=== PATIENT | female | born 1980 | race Caucasian/White ===

== ENCOUNTER 2018-12-13 11:02 | Inpatient (IN) | payer BC ==
[2018-12-13 15:06] LABS: ADD MAN DIFF? NO; HAAIG REFLEX REFLEX FILED
[2018-12-13] MEDS: morphine 4 MG/ML VIAL IV (15:07)
[2018-12-13] MEDS: ONDANSETRON 4 MG INJ IV (15:07)
[2018-12-13] MEDS: SOD CHLORIDE 0.9% 1,000 ML IV (15:08)
[2018-12-13 15:11] LABS: BASOPHIL # 0.1 10^3/ul (0.0-0.1); BASOPHILS % 1.1 % (0.0-2.0); EOSINOPHILS % 0.6 % (0.0-7.0); HEMATOCRIT 28.7 % (37.0-47.0); HEMOGLOBIN 9.9 g/dl (12.0-16.0); LYMPHOCYTES # 0.9 10^3/ul (0.8-2.9); LYMPHOCYTES % 14.6 % (15.0-51.0); MEAN CORPUSCULAR HEMOGLOBIN 36.9 pg (29.0-33.0); MEAN CORPUSCULAR HGB CONC 34.5 g/dl (32.0-37.0); MEAN CORPUSCULAR VOLUME 107.1 fl (82.0-101.0); MEAN PLATELET VOLUME 10.1 fl (7.4-10.4); MONOCYTE # 0.8 10^3/ul (0.3-0.9); MONOCYTES % 12.5 % (0.0-11.0); NEUTROPHIL # 4.5 10^3/ul (1.6-7.5); NEUTROPHILS % 70.7 % (39.0-77.0); PLATELET COUNT 115 10^3/UL (140-415); RED BLOOD COUNT 2.68 10^6/ul (4.20-5.40); RED CELL DISTRIBUTION WIDTH 13.8 % (11.5-14.5)
[2018-12-13 15:11] LABS: WHITE BLOOD COUNT 6.4 10^3/ul (4.8-10.8)
[2018-12-13 15:28] LABS: ALANINE AMINOTRANSFERASE 64 IU/L (13-69); ALBUMIN 3.6 g/dl (3.3-4.9); ALBUMIN/GLOBULIN RATIO 0.94; ALKALINE PHOSPHATASE 325 IU/L (42-121); ANION GAP 16 (5-13); ASPARTATE AMINO TRANSFERASE 268 IU/L (15-46); BILIRUBIN,INDIRECT 1.1 mg/dl (0-1.1); BILIRUBIN,TOTAL 1.3 mg/dl (0.2-1.3); BLOOD UREA NITROGEN 9 mg/dl (7-20); CALCIUM 8.9 mg/dl (8.4-10.2); CARBON DIOXIDE 24 mmol/L (21-31); CHLORIDE 99 mmol/L (97-110); CREATININE 0.48 mg/dl (0.44-1.00); Estimated GFR > 60 mL/min (>60); GLUCOSE 67 mg/dl (70-220); LIPASE 801 U/L (23-300); POTASSIUM 3.3 mmol/L (3.5-5.1); SODIUM 139 mmol/L (135-144); TOTAL PROTEIN 7.4 g/dl (6.1-8.1)
[2018-12-13 15:59] LABS: HEPATITIS B SURFACE ANTIGEN NEGATIVE (NEGATIVE)
[2018-12-13] MEDS ORDERED: ACETAMINOPHEN 325 MG TAB PO (16:00)
[2018-12-13] MEDS ORDERED: ONDANSETRON 4 MG INJ IV ×2 (16:00→16:30)
[2018-12-13 16:09] LABS: UR CLARITY CLEAR (CLEAR); UR COLOR AMBER (YELLOW); UR GLUCOSE (Dip) NEGATIVE (NEGATIVE); UR KETONES (Dip) 2+ mg/dL (NEGATIVE); UR TOTAL PROTEIN (Dip) 1+ mg/dl (NEGATIVE); URINE PH (Dip) 6 (5.0-9.0); URINE SPECIFIC GRAVITY (Dip) 1.025 (1.003-1.030)
[2018-12-13 16:10] LABS: ADD UMIC YES; UR ASCORBIC ACID NEGATIVE (NEGATIVE); UR BILIRUBIN (Dip) 2+ mg/dL (NEGATIVE); UR BLOOD (Dip) NEGATIVE (NEGATIVE); UR LEUKOCYTE ESTERASE (Dip) NEGATIVE Leu/ul (NEGATIVE); UR NITRITE (Dip) NEGATIVE (NEGATIVE); UR UROBILINOGEN (Dip) 2+ mg/dL (NEGATIVE)
[2018-12-13 16:16] LABS: URINE RBCS 0-2 /HPF (0)
[2018-12-13 16:17] LABS: HEPATITIS B CORE ANTIBODY NEGATIVE (NEGATIVE); HEPATITIS C VIRAL ANTIBODY NEGATIVE (NEGATIVE); UR SQUAMOUS EPITHELIAL CELL FEW /HPF (FEW)
[2018-12-13] MEDS ORDERED: ENALAPRILAT 1.25 MG INJ IV (16:30)
[2018-12-13] MEDS ORDERED: NACL 0.9% 3 ML SYG IV (16:30)
[2018-12-13 16:40] LABS: HEMOGLOBIN A1C 4.3 % (0-5.9)
[2018-12-13] MEDS: DEXTROSE 50% 50 ML SYRINGE IV ×2 (17:23→17:33)
[2018-12-13] MEDS: DEXTROSE 5%-0.9% NACL 1,000 ML IV (17:33)
[2018-12-13] MEDS ORDERED: SOD CHLORIDE 0.9% 1,000 ML IV (18:00)
[2018-12-13] MEDS: morphine 2 MG INJ IV ×2 (18:19→22:41)
[2018-12-13 18:25] LABS: CHOLESTEROL 168 mg/dl (100-200)
[2018-12-13 18:33] LABS: IMMUNOGLOBULIN A 456 mg/dl (70-400); IMMUNOGLOBULIN G 1333 mg/dl (700-1600); IMMUNOGLOBULIN M 124 mg/dl (40-230)
[2018-12-14] MEDS: DEXTROSE 5%-0.9% NACL 1,000 ML IV (02:44)
[2018-12-14] MEDS: morphine 2 MG INJ IV ×4 (02:45→20:11)
[2018-12-14] MEDS: PANTOPRAZOLE 40 MG INJ IV (05:57)
[2018-12-14 06:22] LABS: ADD MAN DIFF? NO
[2018-12-14 06:26] LABS: ABNORMAL IP MESSAGE 1; BASOPHILS % 0.9 % (0.0-2.0); EOSINOPHILS # 0.1 10^3/ul (0.0-0.5); EOSINOPHILS % 1.6 % (0.0-7.0); HEMATOCRIT 24.6 % (37.0-47.0); HEMOGLOBIN 8.4 g/dl (12.0-16.0); LYMPHOCYTES # 0.6 10^3/ul (0.8-2.9); LYMPHOCYTES % 19.6 % (15.0-51.0); MEAN CORPUSCULAR HEMOGLOBIN 36.7 pg (29.0-33.0); MEAN CORPUSCULAR HGB CONC 34.1 g/dl (32.0-37.0); MEAN CORPUSCULAR VOLUME 107.4 fl (82.0-101.0); MEAN PLATELET VOLUME 10.7 fl (7.4-10.4); MONOCYTE # 0.5 10^3/ul (0.3-0.9); NEUTROPHILS % 62.6 % (39.0-77.0); PLATELET COUNT 93 10^3/UL (140-415); RED BLOOD COUNT 2.29 10^6/ul (4.20-5.40); RED CELL DISTRIBUTION WIDTH 13.4 % (11.5-14.5)
[2018-12-14 06:26] LABS: WHITE BLOOD COUNT 3.2 10^3/ul (4.8-10.8)
[2018-12-14 06:41] LABS: POSITIVE DIFF @See below
[2018-12-14 06:51] LABS: ANION GAP 7 (5-13); BLOOD UREA NITROGEN 6 mg/dl (7-20); CALCIUM 7.8 mg/dl (8.4-10.2); CARBON DIOXIDE 29 mmol/L (21-31); CHLORIDE 106 mmol/L (97-110); CREATININE 0.42 mg/dl (0.44-1.00); Estimated GFR > 60 mL/min (>60); GLUCOSE 103 mg/dl (70-220); SODIUM 142 mmol/L (135-144)
[2018-12-14 06:54] LABS: LIPASE 424 U/L (23-300)
[2018-12-14 06:54] LABS: AMYLASE 55 U/L (11-123)
[2018-12-14 06:58] LABS: HEMOGLOBIN A1C 4.4 % (0-5.9)
[2018-12-14 07:48] LABS: ALANINE AMINOTRANSFERASE 52 IU/L (13-69); ALBUMIN 2.7 g/dl (3.3-4.9); ALKALINE PHOSPHATASE 245 IU/L (42-121); ASPARTATE AMINO TRANSFERASE 186 IU/L (15-46); BILIRUBIN,INDIRECT 0.8 mg/dl (0-1.1)
[2018-12-14 11:16] LABS: HAPTOGLOBIN 58 mg/dL (43-212)
[2018-12-14] MEDS ORDERED: D5-NS + KCL 40 MEQ 1,000 ML IV (11:30)
[2018-12-14 12:07] LABS: ALPHA 1 ANTITRYPSIN 226 mg/dL (83-199); CERULOPLASMIN 31 mg/dL (18-53)
[2018-12-14] MEDS ORDERED: EPOETIN ALFA (NESRD) 3,000 UNITS/ML VIAL SC (12:30)
[2018-12-14] MEDS: POTASSIUM CHLORIDE 40 MEQ in DEXTROSE 5%-0.9% NACL 1,000 ML IV (13:40)
[2018-12-14 13:41] LABS: SMOOTH MUSCLE AB SCREEN NEGATIVE (NEGATIVE)
[2018-12-14] MEDS: EPOETIN 10000 UNITS/ML (NON ESRD/NON ONCOLOGY) SC (15:22)
[2018-12-15] MEDS: morphine 2 MG INJ IV ×5 (00:29→18:44)
[2018-12-15] MEDS: POTASSIUM CHLORIDE 40 MEQ in DEXTROSE 5%-0.9% NACL 1,000 ML IV ×3 (01:57→14:45)
[2018-12-15] MEDS: PANTOPRAZOLE 40 MG INJ IV (05:13)
[2018-12-15 06:46] LABS: IRON 47 ug/dl (35-150)
[2018-12-15 06:56] LABS: % IRON SATURATION 21 % SAT (22-52); TOTAL IRON BINDING CAPACITY 229 ug/dl (241-421)
[2018-12-15 07:11] LABS: ANION GAP 7 (5-13); BLOOD UREA NITROGEN 3 mg/dl (7-20); CALCIUM 7.7 mg/dl (8.4-10.2); CARBON DIOXIDE 27 mmol/L (21-31); CHLORIDE 110 mmol/L (97-110); CREATININE 0.44 mg/dl (0.44-1.00); Estimated GFR > 60 mL/min (>60); GLUCOSE 101 mg/dl (70-220); LIPASE 321 U/L (23-300); POTASSIUM 3.4 mmol/L (3.5-5.1); SODIUM 144 mmol/L (135-144)
[2018-12-15 10:51] LABS: ALANINE AMINOTRANSFERASE 57 IU/L (13-69); ALBUMIN 2.6 g/dl (3.3-4.9); ALKALINE PHOSPHATASE 203 IU/L (42-121); ASPARTATE AMINO TRANSFERASE 172 IU/L (15-46); BILIRUBIN,INDIRECT 0.8 mg/dl (0-1.1); BILIRUBIN,TOTAL 0.8 mg/dl (0.2-1.3); TOTAL PROTEIN 5.6 g/dl (6.1-8.1)
[2018-12-15] MEDS: POTASSIUM CHLORIDE (SR) 20 MEQ TAB PO (11:29)
[2018-12-16] MEDS: POTASSIUM CHLORIDE 40 MEQ in DEXTROSE 5%-0.9% NACL 1,000 ML IV ×2 (00:50→14:44)
[2018-12-16] MEDS: morphine 2 MG INJ IV ×6 (04:17→21:07)
[2018-12-16] MEDS: PANTOPRAZOLE 40 MG INJ IV (05:16)
[2018-12-16 05:37] LABS: ADD MAN DIFF? NO
[2018-12-16 05:48] LABS: BASOPHILS % 0.8 % (0.0-2.0); HEMATOCRIT 26.9 % (37.0-47.0); HEMOGLOBIN 8.9 g/dl (12.0-16.0); LYMPHOCYTES # 0.8 10^3/ul (0.8-2.9); MEAN CORPUSCULAR HEMOGLOBIN 36.8 pg (29.0-33.0); MEAN CORPUSCULAR HGB CONC 33.1 g/dl (32.0-37.0); MEAN CORPUSCULAR VOLUME 111.2 fl (82.0-101.0); MEAN PLATELET VOLUME 11.3 fl (7.4-10.4); MONOCYTE # 0.5 10^3/ul (0.3-0.9); MONOCYTES % 11.3 % (0.0-11.0); NEUTROPHIL # 2.6 10^3/ul (1.6-7.5); NEUTROPHILS % 65.4 % (39.0-77.0); PLATELET COUNT 120 10^3/UL (140-415); RED BLOOD COUNT 2.42 10^6/ul (4.20-5.40); RED CELL DISTRIBUTION WIDTH 13.5 % (11.5-14.5)
[2018-12-16 05:54] LABS: INR 1.29; PROTIME 16.2 Sec (11.9-14.9); PT RATIO 1.3
[2018-12-16 05:55] LABS: PARTIAL THROMBOPLASTIN TIME 35.3 Sec (23.0-35.0)
[2018-12-16 06:25] LABS: LIPASE 325 U/L (23-300)
[2018-12-16 06:33] LABS: ALANINE AMINOTRANSFERASE 44 IU/L (13-69); ALBUMIN 2.6 g/dl (3.3-4.9); ALBUMIN/GLOBULIN RATIO 0.86; ALKALINE PHOSPHATASE 198 IU/L (42-121); ANION GAP 9 (5-13); ASPARTATE AMINO TRANSFERASE 139 IU/L (15-46); BILIRUBIN,INDIRECT 0.8 mg/dl (0-1.1); BILIRUBIN,TOTAL 0.8 mg/dl (0.2-1.3); CALCIUM 7.4 mg/dl (8.4-10.2); CARBON DIOXIDE 24 mmol/L (21-31); CHLORIDE 111 mmol/L (97-110); CREATININE 0.43 mg/dl (0.44-1.00); Estimated GFR > 60 mL/min (>60); GLUCOSE 92 mg/dl (70-220); POTASSIUM 4.1 mmol/L (3.5-5.1); SODIUM 144 mmol/L (135-144); TOTAL PROTEIN 5.6 g/dl (6.1-8.1)
[2018-12-16 06:43] LABS: BLOOD UREA NITROGEN < 2 mg/dl (7-20)
[2018-12-16] MEDS: PHYTONADIONE 10 MG/ML INJ SC (08:49)
[2018-12-16] MEDS ORDERED: ALPRAZOLAM 0.25 MG TAB PO (09:00)
[2018-12-16] MEDS: LIDOCAINE 1% (MPF) 5 ML VIAL (14:54)
[2018-12-16 17:39] LABS: ADD MAN DIFF? NO
[2018-12-16 17:42] LABS: BASOPHILS % 0.8 % (0.0-2.0); EOSINOPHILS % 0.8 % (0.0-7.0); HEMATOCRIT 29.1 % (37.0-47.0); HEMOGLOBIN 9.4 g/dl (12.0-16.0); LYMPHOCYTES # 0.7 10^3/ul (0.8-2.9); LYMPHOCYTES % 15.6 % (15.0-51.0); MEAN CORPUSCULAR HGB CONC 32.3 g/dl (32.0-37.0); MEAN CORPUSCULAR VOLUME 111.5 fl (82.0-101.0); MEAN PLATELET VOLUME 10.7 fl (7.4-10.4); MONOCYTE # 0.5 10^3/ul (0.3-0.9); MONOCYTES % 10.8 % (0.0-11.0); NEUTROPHIL # 3.4 10^3/ul (1.6-7.5); NEUTROPHILS % 71.6 % (39.0-77.0); PLATELET COUNT 135 10^3/UL (140-415); RED BLOOD COUNT 2.61 10^6/ul (4.20-5.40); RED CELL DISTRIBUTION WIDTH 13.5 % (11.5-14.5)
[2018-12-16 17:42] LABS: WHITE BLOOD COUNT 4.7 10^3/ul (4.8-10.8)
[2018-12-16 18:46] LABS: ANA SCREEN POSITIVE (NEGATIVE)
[2018-12-17] MEDS: POTASSIUM CHLORIDE 40 MEQ in DEXTROSE 5%-0.9% NACL 1,000 ML IV ×4 (01:02→23:58)
[2018-12-17] MEDS: morphine 2 MG INJ IV ×6 (01:03→22:12)
[2018-12-17] MEDS: PANTOPRAZOLE 40 MG INJ IV (05:26)
[2018-12-17 05:55] LABS: ADD MAN DIFF? NO
[2018-12-17 06:01] LABS: BASOPHIL # 0.1 10^3/ul (0.0-0.1); EOSINOPHILS % 0.6 % (0.0-7.0); HEMATOCRIT 28.9 % (37.0-47.0); HEMOGLOBIN 9.5 g/dl (12.0-16.0); LYMPHOCYTES # 0.7 10^3/ul (0.8-2.9); LYMPHOCYTES % 15.3 % (15.0-51.0); MEAN CORPUSCULAR HEMOGLOBIN 36.1 pg (29.0-33.0); MEAN CORPUSCULAR HGB CONC 32.9 g/dl (32.0-37.0); MEAN CORPUSCULAR VOLUME 109.9 fl (82.0-101.0); MEAN PLATELET VOLUME 11.8 fl (7.4-10.4); MONOCYTE # 0.5 10^3/ul (0.3-0.9); MONOCYTES % 11.1 % (0.0-11.0); NEUTROPHIL # 3.4 10^3/ul (1.6-7.5); NEUTROPHILS % 71.6 % (39.0-77.0); PLATELET COUNT 117 10^3/UL (140-415); RED BLOOD COUNT 2.63 10^6/ul (4.20-5.40); RED CELL DISTRIBUTION WIDTH 13.6 % (11.5-14.5)
[2018-12-17 06:01] LABS: WHITE BLOOD COUNT 4.8 10^3/ul (4.8-10.8)
[2018-12-17 06:04] LABS: POSITIVE DIFF @See below
[2018-12-17 06:17] LABS: ALANINE AMINOTRANSFERASE 45 IU/L (13-69); ALBUMIN 2.6 g/dl (3.3-4.9); ALBUMIN/GLOBULIN RATIO 0.78; ALKALINE PHOSPHATASE 210 IU/L (42-121); ANION GAP 8 (5-13); ASPARTATE AMINO TRANSFERASE 119 IU/L (15-46); BILIRUBIN,INDIRECT 0.7 mg/dl (0-1.1); BILIRUBIN,TOTAL 0.7 mg/dl (0.2-1.3); CALCIUM 7.2 mg/dl (8.4-10.2); CARBON DIOXIDE 22 mmol/L (21-31); CHLORIDE 111 mmol/L (97-110); CREATININE 0.36 mg/dl (0.44-1.00); Estimated GFR > 60 mL/min (>60); GLUCOSE 97 mg/dl (70-220); LIPASE 307 U/L (23-300); POTASSIUM 3.8 mmol/L (3.5-5.1); SODIUM 141 mmol/L (135-144); TOTAL PROTEIN 5.9 g/dl (6.1-8.1)
[2018-12-17 06:29] LABS: BLOOD UREA NITROGEN < 2 mg/dl (7-20)
[2018-12-17 06:31] LABS: PROTIME 16.3 Sec (11.9-14.9); PT RATIO 1.3
[2018-12-17 06:32] LABS: PARTIAL THROMBOPLASTIN TIME 35.8 Sec (23.0-35.0)
[2018-12-17] MEDS ORDERED: morphine LIQ (10 MG/5 ML) CUP PO (08:30)
[2018-12-17 08:38] LABS: AADO2 Arterial 41.2 mmHg (7.0-24.0); Allen Test ACCEPTAB; Arterial Base Excess -1.5 mmol/L (-3.0-3); Arterial Blood Gas Oxygen Sat 94.1 mmHG (95.0-98.0); Arterial COHb 0.1 % (0.0-3.0); Arterial Fraction of Oxyhgb 93.9 % (93.0-99.0); Arterial HCO3 21.8 mmol/L (22.0-26.0); Arterial MetHb 0.1 % (0.0-1.5); Arterial pCO2 31.8 mmhg (35-45); MODE ROOM AIR; Site Right Radial
[2018-12-17] MEDS: ALBUTEROL 0.083% (NEB) 2.5 MG/3 ML AMP HHN (09:55)
[2018-12-17] MEDS: SOD CHLORIDE 0.9% 100 ML (14:22)
[2018-12-17] MEDS: IOHEXOL 300MG/ML 150 ML BTL (14:23)
[2018-12-17] MEDS: AZITHROMYCIN 500MG/NS (PMX) 250 ML IVPB (15:07)
[2018-12-17 20:11] LABS: ANA PATTERN HOMOGENEOUS
[2018-12-17] MEDS: DOXYCYCLINE 100 MG TAB PO (20:25)
[2018-12-17] MEDS: BENZONATATE 100 MG CAP PO (20:25)
[2018-12-17] MEDS: FUROSEMIDE 20 MG INJ IV (22:12)
[2018-12-18] MEDS: morphine 2 MG INJ IV ×5 (03:06→20:30)
[2018-12-18 05:36] LABS: ADD MAN DIFF? NO
[2018-12-18 05:42] LABS: WHITE BLOOD COUNT 5.1 10^3/ul (4.8-10.8)
[2018-12-18 05:42] LABS: BASOPHILS % 0.8 % (0.0-2.0); EOSINOPHILS # 0.1 10^3/ul (0.0-0.5); HEMATOCRIT 27.2 % (37.0-47.0); LYMPHOCYTES # 0.7 10^3/ul (0.8-2.9); LYMPHOCYTES % 14.4 % (15.0-51.0); MEAN CORPUSCULAR HEMOGLOBIN 36.3 pg (29.0-33.0); MEAN CORPUSCULAR HGB CONC 33.1 g/dl (32.0-37.0); MEAN CORPUSCULAR VOLUME 109.7 fl (82.0-101.0); MEAN PLATELET VOLUME 11.1 fl (7.4-10.4); MONOCYTE # 0.6 10^3/ul (0.3-0.9); MONOCYTES % 12.1 % (0.0-11.0); NEUTROPHIL # 3.6 10^3/ul (1.6-7.5); NEUTROPHILS % 71.5 % (39.0-77.0); PLATELET COUNT 138 10^3/UL (140-415); RED BLOOD COUNT 2.48 10^6/ul (4.20-5.40); RED CELL DISTRIBUTION WIDTH 13.5 % (11.5-14.5)
[2018-12-18 05:48] LABS: INR 1.37; PT RATIO 1.3
[2018-12-18 05:49] LABS: ALANINE AMINOTRANSFERASE 40 IU/L (13-69); ALBUMIN 2.5 g/dl (3.3-4.9); ALBUMIN/GLOBULIN RATIO 0.86; ALKALINE PHOSPHATASE 197 IU/L (42-121); ANION GAP 5 (5-13); ASPARTATE AMINO TRANSFERASE 104 IU/L (15-46); BILIRUBIN,INDIRECT 0.8 mg/dl (0-1.1); BILIRUBIN,TOTAL 0.8 mg/dl (0.2-1.3); CALCIUM 7.4 mg/dl (8.4-10.2); CARBON DIOXIDE 26 mmol/L (21-31); CHLORIDE 108 mmol/L (97-110); CREATININE 0.43 mg/dl (0.44-1.00); Estimated GFR > 60 mL/min (>60); GLUCOSE 90 mg/dl (70-220); PARTIAL THROMBOPLASTIN TIME 36.5 Sec (23.0-35.0); POTASSIUM 4.2 mmol/L (3.5-5.1); SODIUM 139 mmol/L (135-144); TOTAL PROTEIN 5.4 g/dl (6.1-8.1)
[2018-12-18 05:55] LABS: BLOOD UREA NITROGEN < 2 mg/dl (7-20)
[2018-12-18] MEDS: PANTOPRAZOLE 40 MG INJ IV (06:02)
[2018-12-18] MEDS: BENZONATATE 100 MG CAP PO ×4 (08:10→20:30)
[2018-12-18] MEDS: DOXYCYCLINE 100 MG TAB PO ×2 (08:10→08:12)
[2018-12-18] MEDS: LIDOCAINE 1% (MPF) 5 ML VIAL (10:28)
[2018-12-18] MEDS: FUROSEMIDE 20 MG INJ IV (11:43)
[2018-12-18 12:04] LABS: FLD MN% 90.1 %; FLD PMN% 9.9 %; FLD WBC 111 /cmm
[2018-12-18 12:45] LABS: FLD CLARITY CLEAR; FLD COLOR YELLOW; FLD RBC < 2000 /uL; FLUID LD 258 U/L
[2018-12-18 12:45] LABS: FLD TYPE PLEURAL
[2018-12-18 12:46] LABS: FLUID GLUCOSE 94 mg/dl; FLUID TOTAL PROTEIN < 2.0 g/dl; FLUID TYPE PLEURAL FLUID
[2018-12-18] MEDS: POTASSIUM CHLORIDE 40 MEQ in DEXTROSE 5%-0.9% NACL 1,000 ML IV ×2 (13:19→23:27)
[2018-12-19] MEDS: morphine 2 MG INJ IV ×6 (00:31→23:01)
[2018-12-19] MEDS: POTASSIUM CHLORIDE 40 MEQ in DEXTROSE 5%-0.9% NACL 1,000 ML IV ×3 (05:12→23:59)
[2018-12-19 05:57] LABS: ADD MAN DIFF? NO
[2018-12-19 06:00] LABS: BASOPHIL # 0.1 10^3/ul (0.0-0.1); EOSINOPHILS # 0.1 10^3/ul (0.0-0.5); EOSINOPHILS % 1.6 % (0.0-7.0); HEMATOCRIT 26.9 % (37.0-47.0); LYMPHOCYTES # 0.8 10^3/ul (0.8-2.9); LYMPHOCYTES % 15.6 % (15.0-51.0); MEAN CORPUSCULAR HEMOGLOBIN 36.9 pg (29.0-33.0); MEAN CORPUSCULAR HGB CONC 33.5 g/dl (32.0-37.0); MEAN CORPUSCULAR VOLUME 110.2 fl (82.0-101.0); MEAN PLATELET VOLUME 11.1 fl (7.4-10.4); MONOCYTE # 0.6 10^3/ul (0.3-0.9); MONOCYTES % 12.5 % (0.0-11.0); NEUTROPHIL # 3.5 10^3/ul (1.6-7.5); NEUTROPHILS % 69.1 % (39.0-77.0); PLATELET COUNT 145 10^3/UL (140-415); RED BLOOD COUNT 2.44 10^6/ul (4.20-5.40); RED CELL DISTRIBUTION WIDTH 13.3 % (11.5-14.5)
[2018-12-19 06:00] LABS: WHITE BLOOD COUNT 5.1 10^3/ul (4.8-10.8)
[2018-12-19 06:20] LABS: ALANINE AMINOTRANSFERASE 39 IU/L (13-69); ALBUMIN 2.4 g/dl (3.3-4.9); ALBUMIN/GLOBULIN RATIO 0.85; ALKALINE PHOSPHATASE 184 IU/L (42-121); ANION GAP 6 (5-13); ASPARTATE AMINO TRANSFERASE 94 IU/L (15-46); BILIRUBIN,INDIRECT 0.7 mg/dl (0-1.1); BILIRUBIN,TOTAL 0.7 mg/dl (0.2-1.3); CALCIUM 7.3 mg/dl (8.4-10.2); CARBON DIOXIDE 26 mmol/L (21-31); CHLORIDE 108 mmol/L (97-110); CREATININE 0.49 mg/dl (0.44-1.00); Estimated GFR > 60 mL/min (>60); GAMMA GLUTAMYL TRANSPEPTIDASE 960 IU/L (0-50); GLUCOSE 94 mg/dl (70-220); MAGNESIUM 1.1 mg/dl (1.7-2.5); SODIUM 140 mmol/L (135-144); TOTAL PROTEIN 5.2 g/dl (6.1-8.1)
[2018-12-19 06:22] LABS: BLOOD UREA NITROGEN < 2 mg/dl (7-20)
[2018-12-19 06:28] LABS: INR 1.39; PARTIAL THROMBOPLASTIN TIME 38.6 Sec (23.0-35.0); PROTIME 17.2 Sec (11.9-14.9); PT RATIO 1.3
[2018-12-19] MEDS: FAMOTIDINE 20 MG INJ IV (06:31)
[2018-12-19] MEDS: MAGNESIUM SULFATE 3 GM in DEXTROSE 5% 100 ML IVPB (07:55)
[2018-12-19] MEDS: BENZONATATE 100 MG CAP PO ×3 (09:00→20:46)
[2018-12-19] MEDS: IOHEXOL 300MG/ML 150 ML BTL (10:16)
[2018-12-19] MEDS: SOD CHLORIDE 0.9% 100 ML (10:16)
[2018-12-19] MEDS: LIDOCAINE 1% (MPF) 5 ML VIAL (10:16)
[2018-12-19] MEDS: FUROSEMIDE 20 MG INJ IV (10:51)
[2018-12-19] MEDS: hydrOXYzine HCL 10 MG TAB PO (23:01)
[2018-12-20] MEDS: morphine 2 MG INJ IV ×5 (04:42→22:16)
[2018-12-20] MEDS: FAMOTIDINE 20 MG INJ IV (05:14)
[2018-12-20 05:47] LABS: ADD MAN DIFF? NO
[2018-12-20 05:54] LABS: WHITE BLOOD COUNT 4.6 10^3/ul (4.8-10.8)
[2018-12-20 05:54] LABS: BASOPHIL # 0.1 10^3/ul (0.0-0.1); BASOPHILS % 1.5 % (0.0-2.0); EOSINOPHILS # 0.1 10^3/ul (0.0-0.5); EOSINOPHILS % 1.8 % (0.0-7.0); HEMATOCRIT 26.6 % (37.0-47.0); HEMOGLOBIN 8.9 g/dl (12.0-16.0); LYMPHOCYTES # 0.8 10^3/ul (0.8-2.9); LYMPHOCYTES % 17.1 % (15.0-51.0); MEAN CORPUSCULAR HEMOGLOBIN 36.5 pg (29.0-33.0); MEAN CORPUSCULAR HGB CONC 33.5 g/dl (32.0-37.0); MEAN PLATELET VOLUME 11.6 fl (7.4-10.4); MONOCYTE # 0.5 10^3/ul (0.3-0.9); MONOCYTES % 11.4 % (0.0-11.0); NEUTROPHIL # 3.1 10^3/ul (1.6-7.5); NEUTROPHILS % 67.8 % (39.0-77.0); PLATELET COUNT 132 10^3/UL (140-415); RED BLOOD COUNT 2.44 10^6/ul (4.20-5.40); RED CELL DISTRIBUTION WIDTH 13.2 % (11.5-14.5)
[2018-12-20 06:07] LABS: INR 1.42; PROTIME 17.5 Sec (11.9-14.9); PT RATIO 1.4
[2018-12-20 06:08] LABS: PARTIAL THROMBOPLASTIN TIME 40.5 Sec (23.0-35.0)
[2018-12-20 06:29] LABS: ALANINE AMINOTRANSFERASE 37 IU/L (13-69); ALBUMIN 2.3 g/dl (3.3-4.9); ALBUMIN/GLOBULIN RATIO 0.76; ALKALINE PHOSPHATASE 184 IU/L (42-121); ANION GAP 5 (5-13); ASPARTATE AMINO TRANSFERASE 104 IU/L (15-46); BILIRUBIN,INDIRECT 0.6 mg/dl (0-1.1); BILIRUBIN,TOTAL 0.6 mg/dl (0.2-1.3); CALCIUM 7.6 mg/dl (8.4-10.2); CARBON DIOXIDE 24 mmol/L (21-31); CHLORIDE 107 mmol/L (97-110); CREATININE 0.43 mg/dl (0.44-1.00); Estimated GFR > 60 mL/min (>60); GLUCOSE 88 mg/dl (70-220); MAGNESIUM 1.7 mg/dl (1.7-2.5); SODIUM 136 mmol/L (135-144); TOTAL PROTEIN 5.3 g/dl (6.1-8.1)
[2018-12-20 06:30] LABS: BLOOD UREA NITROGEN < 2 mg/dl (7-20)
[2018-12-20] MEDS: BENZONATATE 100 MG CAP PO ×3 (09:17→20:23)
[2018-12-20] MEDS: FUROSEMIDE 20 MG INJ IV (09:17)
[2018-12-20] MEDS: SPIRONOLACTONE 50 MG TAB PO (09:17)
[2018-12-20] MEDS: PHYTONADIONE 10 MG in DEXTROSE 5% 50 ML IVPB (10:50)
[2018-12-20] MEDS: MAGNESIUM SULFATE 2 GM/50 ML 50 ML IVPB (13:45)
[2018-12-21] MEDS: morphine 2 MG INJ IV ×6 (02:31→22:58)
[2018-12-21 05:17] LABS: ADD MAN DIFF? NO
[2018-12-21 05:18] LABS: BASOPHIL # 0.1 10^3/ul (0.0-0.1); EOSINOPHILS # 0.1 10^3/ul (0.0-0.5); HEMATOCRIT 28.7 % (37.0-47.0); HEMOGLOBIN 9.7 g/dl (12.0-16.0); LYMPHOCYTES # 0.9 10^3/ul (0.8-2.9); MEAN CORPUSCULAR HEMOGLOBIN 36.6 pg (29.0-33.0); MEAN CORPUSCULAR HGB CONC 33.8 g/dl (32.0-37.0); MEAN CORPUSCULAR VOLUME 108.3 fl (82.0-101.0); MONOCYTE # 0.7 10^3/ul (0.3-0.9); MONOCYTES % 11.2 % (0.0-11.0); NEUTROPHIL # 4.2 10^3/ul (1.6-7.5); NEUTROPHILS % 71.5 % (39.0-77.0); PLATELET COUNT 148 10^3/UL (140-415); RED BLOOD COUNT 2.65 10^6/ul (4.20-5.40)
[2018-12-21 05:18] LABS: WHITE BLOOD COUNT 5.9 10^3/ul (4.8-10.8)
[2018-12-21] MEDS: FAMOTIDINE 20 MG INJ IV (05:22)
[2018-12-21 05:44] LABS: INR 1.32; PROTIME 16.5 Sec (11.9-14.9); PT RATIO 1.3
[2018-12-21 05:45] LABS: PARTIAL THROMBOPLASTIN TIME 38.8 Sec (23.0-35.0)
[2018-12-21 06:01] LABS: ALANINE AMINOTRANSFERASE 36 IU/L (13-69); ALBUMIN 2.5 g/dl (3.3-4.9); ALKALINE PHOSPHATASE 208 IU/L (42-121); ANION GAP 7 (5-13); ASPARTATE AMINO TRANSFERASE 129 IU/L (15-46); BILIRUBIN,INDIRECT 0.8 mg/dl (0-1.1); BILIRUBIN,TOTAL 0.8 mg/dl (0.2-1.3); BLOOD UREA NITROGEN 2 mg/dl (7-20); CALCIUM 8.5 mg/dl (8.4-10.2); CARBON DIOXIDE 25 mmol/L (21-31); CHLORIDE 103 mmol/L (97-110); CREATININE 0.45 mg/dl (0.44-1.00); Estimated GFR > 60 mL/min (>60); GLUCOSE 72 mg/dl (70-220); LIPASE 612 U/L (23-300); MAGNESIUM 1.7 mg/dl (1.7-2.5); POTASSIUM 3.9 mmol/L (3.5-5.1); SODIUM 135 mmol/L (135-144); TOTAL PROTEIN 5.6 g/dl (6.1-8.1)
[2018-12-21] MEDS: SPIRONOLACTONE 50 MG TAB PO (08:51)
[2018-12-21] MEDS: BENZONATATE 100 MG CAP PO ×3 (08:52→20:35)
[2018-12-22] MEDS: morphine 2 MG INJ IV ×4 (04:00→15:59)
[2018-12-22] MEDS: FAMOTIDINE 20 MG INJ IV (05:14)
[2018-12-22 05:22] LABS: ADD MAN DIFF? NO
[2018-12-22 05:34] LABS: BASOPHIL # 0.1 10^3/ul (0.0-0.1); BASOPHILS % 1.1 % (0.0-2.0); EOSINOPHILS # 0.1 10^3/ul (0.0-0.5); EOSINOPHILS % 1.3 % (0.0-7.0); HEMATOCRIT 30.8 % (37.0-47.0); HEMOGLOBIN 10.1 g/dl (12.0-16.0); LYMPHOCYTES # 1.3 10^3/ul (0.8-2.9); LYMPHOCYTES % 21.6 % (15.0-51.0); MEAN CORPUSCULAR HEMOGLOBIN 35.3 pg (29.0-33.0); MEAN CORPUSCULAR HGB CONC 32.8 g/dl (32.0-37.0); MEAN CORPUSCULAR VOLUME 107.7 fl (82.0-101.0); MEAN PLATELET VOLUME 10.8 fl (7.4-10.4); MONOCYTE # 0.8 10^3/ul (0.3-0.9); MONOCYTES % 12.9 % (0.0-11.0); NEUTROPHIL # 3.8 10^3/ul (1.6-7.5); NEUTROPHILS % 62.6 % (39.0-77.0); PLATELET COUNT 153 10^3/UL (140-415); RED BLOOD COUNT 2.86 10^6/ul (4.20-5.40); RED CELL DISTRIBUTION WIDTH 12.7 % (11.5-14.5)
[2018-12-22 05:34] LABS: WHITE BLOOD COUNT 6.1 10^3/ul (4.8-10.8)
[2018-12-22] MEDS: BENZONATATE 100 MG CAP PO ×3 (08:02→19:55)
[2018-12-22] MEDS: SPIRONOLACTONE 50 MG TAB PO (08:02)
[2018-12-22] MEDS: morphine 4 MG/ML VIAL IV ×2 (18:59→22:58)
[2018-12-22] MEDS ORDERED: morphine 4 MG/ML VIAL IV (20:30)
[2018-12-23] MEDS: morphine 4 MG/ML VIAL IV ×3 (03:17→11:15)
[2018-12-23] MEDS: FAMOTIDINE 20 MG INJ IV (05:43)
[2018-12-23 06:09] LABS: ADD MAN DIFF? NO
[2018-12-23 06:12] LABS: BASOPHIL # 0.1 10^3/ul (0.0-0.1); BASOPHILS % 1.2 % (0.0-2.0); EOSINOPHILS # 0.1 10^3/ul (0.0-0.5); EOSINOPHILS % 0.9 % (0.0-7.0); HEMATOCRIT 31.6 % (37.0-47.0); HEMOGLOBIN 10.3 g/dl (12.0-16.0); LYMPHOCYTES # 1.6 10^3/ul (0.8-2.9); LYMPHOCYTES % 22.7 % (15.0-51.0); MEAN CORPUSCULAR HGB CONC 32.6 g/dl (32.0-37.0); MEAN CORPUSCULAR VOLUME 107.5 fl (82.0-101.0); MEAN PLATELET VOLUME 10.9 fl (7.4-10.4); MONOCYTE # 0.8 10^3/ul (0.3-0.9); MONOCYTES % 11.3 % (0.0-11.0); NEUTROPHIL # 4.4 10^3/ul (1.6-7.5); NEUTROPHILS % 63.6 % (39.0-77.0); PLATELET COUNT 165 10^3/UL (140-415); RED BLOOD COUNT 2.94 10^6/ul (4.20-5.40); RED CELL DISTRIBUTION WIDTH 12.9 % (11.5-14.5)
[2018-12-23 06:12] LABS: WHITE BLOOD COUNT 6.9 10^3/ul (4.8-10.8)
[2018-12-23 07:49] LABS: ALANINE AMINOTRANSFERASE 33 IU/L (13-69); ALBUMIN 2.8 g/dl (3.3-4.9); ALBUMIN/GLOBULIN RATIO 0.84; ALKALINE PHOSPHATASE 204 IU/L (42-121); AMYLASE 94 U/L (11-123); ANION GAP 8 (5-13); ASPARTATE AMINO TRANSFERASE 146 IU/L (15-46); BILIRUBIN,INDIRECT 0.8 mg/dl (0-1.1); BILIRUBIN,TOTAL 0.9 mg/dl (0.2-1.3); BLOOD UREA NITROGEN 2 mg/dl (7-20); CALCIUM 9.1 mg/dl (8.4-10.2); CARBON DIOXIDE 31 mmol/L (21-31); CHLORIDE 101 mmol/L (97-110); Estimated GFR > 60 mL/min (>60); GAMMA GLUTAMYL TRANSPEPTIDASE 847 IU/L (0-50); GLUCOSE 64 mg/dl (70-220); LIPASE 408 U/L (23-300); POTASSIUM 4.3 mmol/L (3.5-5.1); SODIUM 140 mmol/L (135-144); TOTAL PROTEIN 6.1 g/dl (6.1-8.1)
[2018-12-23] MEDS: MAGNESIUM SULFATE 2 GM/50 ML 50 ML IVPB (08:43)
[2018-12-23] MEDS: BENZONATATE 100 MG CAP PO ×3 (08:44→20:58)
[2018-12-23] MEDS: SPIRONOLACTONE 50 MG TAB PO (08:44)
[2018-12-23] MEDS: morphine LIQ (10 MG/5 ML) CUP PO ×3 (15:21→21:43)
[2018-12-24] MEDS: morphine LIQ (10 MG/5 ML) CUP PO ×7 (01:46→23:33)
[2018-12-24 05:26] LABS: ADD MAN DIFF? NO
[2018-12-24 05:37] LABS: WHITE BLOOD COUNT 5.4 10^3/ul (4.8-10.8)
[2018-12-24 05:37] LABS: BASOPHIL # 0.1 10^3/ul (0.0-0.1); BASOPHILS % 1.7 % (0.0-2.0); EOSINOPHILS # 0.1 10^3/ul (0.0-0.5); EOSINOPHILS % 1.7 % (0.0-7.0); HEMATOCRIT 29.6 % (37.0-47.0); HEMOGLOBIN 9.9 g/dl (12.0-16.0); LYMPHOCYTES # 1.1 10^3/ul (0.8-2.9); MEAN CORPUSCULAR HEMOGLOBIN 35.6 pg (29.0-33.0); MEAN CORPUSCULAR HGB CONC 33.4 g/dl (32.0-37.0); MEAN CORPUSCULAR VOLUME 106.5 fl (82.0-101.0); MEAN PLATELET VOLUME 11.3 fl (7.4-10.4); MONOCYTE # 0.7 10^3/ul (0.3-0.9); MONOCYTES % 13.1 % (0.0-11.0); NEUTROPHIL # 3.5 10^3/ul (1.6-7.5); NEUTROPHILS % 63.3 % (39.0-77.0); PLATELET COUNT 148 10^3/UL (140-415); RED BLOOD COUNT 2.78 10^6/ul (4.20-5.40); RED CELL DISTRIBUTION WIDTH 12.7 % (11.5-14.5)
[2018-12-24 05:55] LABS: INR 1.39; PROTIME 17.2 Sec (11.9-14.9); PT RATIO 1.3
[2018-12-24 05:56] LABS: PARTIAL THROMBOPLASTIN TIME 40.7 Sec (23.0-35.0)
[2018-12-24 06:00] LABS: ALANINE AMINOTRANSFERASE 36 IU/L (13-69); ALBUMIN 2.5 g/dl (3.3-4.9); ALKALINE PHOSPHATASE 184 IU/L (42-121); AMYLASE 79 U/L (11-123); ANION GAP 5 (5-13); ASPARTATE AMINO TRANSFERASE 149 IU/L (15-46); BILIRUBIN,INDIRECT 0.7 mg/dl (0-1.1); BILIRUBIN,TOTAL 0.8 mg/dl (0.2-1.3); CALCIUM 8.6 mg/dl (8.4-10.2); CARBON DIOXIDE 32 mmol/L (21-31); CHLORIDE 101 mmol/L (97-110); CREATININE 0.54 mg/dl (0.44-1.00); Estimated GFR > 60 mL/min (>60); GLUCOSE 69 mg/dl (70-220); LIPASE 382 U/L (23-300); MAGNESIUM 1.4 mg/dl (1.7-2.5); POTASSIUM 4.4 mmol/L (3.5-5.1); SODIUM 138 mmol/L (135-144); TOTAL PROTEIN 5.6 g/dl (6.1-8.1)
[2018-12-24 06:03] LABS: BLOOD UREA NITROGEN < 2 mg/dl (7-20)
[2018-12-24] MEDS: BENZONATATE 100 MG CAP PO ×3 (08:12→20:26)
[2018-12-24] MEDS: SPIRONOLACTONE 50 MG TAB PO (08:12)
[2018-12-24] MEDS: FAMOTIDINE 20 MG TAB PO (08:14)
[2018-12-24] MEDS: MAGNESIUM SULFATE 3 GM in DEXTROSE 5% 100 ML IVPB (09:28)
[2018-12-24] MEDS: PHYTONADIONE 10 MG in DEXTROSE 5% 50 ML IVPB (11:49)
[2018-12-25] MEDS: morphine LIQ (10 MG/5 ML) CUP PO ×7 (02:49→21:21)
[2018-12-25 07:24] LABS: ADD MAN DIFF? NO
[2018-12-25 07:32] LABS: BASOPHIL # 0.1 10^3/ul (0.0-0.1); BASOPHILS % 1.2 % (0.0-2.0); EOSINOPHILS # 0.1 10^3/ul (0.0-0.5); EOSINOPHILS % 1.3 % (0.0-7.0); HEMATOCRIT 30.7 % (37.0-47.0); HEMOGLOBIN 10.1 g/dl (12.0-16.0); LYMPHOCYTES # 1.2 10^3/ul (0.8-2.9); LYMPHOCYTES % 20.4 % (15.0-51.0); MEAN CORPUSCULAR HEMOGLOBIN 35.4 pg (29.0-33.0); MEAN CORPUSCULAR HGB CONC 32.9 g/dl (32.0-37.0); MEAN CORPUSCULAR VOLUME 107.7 fl (82.0-101.0); MEAN PLATELET VOLUME 11.1 fl (7.4-10.4); MONOCYTE # 0.6 10^3/ul (0.3-0.9); MONOCYTES % 9.2 % (0.0-11.0); NEUTROPHIL # 4.1 10^3/ul (1.6-7.5); NEUTROPHILS % 67.6 % (39.0-77.0); PLATELET COUNT 141 10^3/UL (140-415); RED BLOOD COUNT 2.85 10^6/ul (4.20-5.40); RED CELL DISTRIBUTION WIDTH 12.5 % (11.5-14.5)
[2018-12-25 07:48] LABS: ALANINE AMINOTRANSFERASE 29 IU/L (13-69); ALBUMIN 2.7 g/dl (3.3-4.9); ALBUMIN/GLOBULIN RATIO 0.81; ALKALINE PHOSPHATASE 198 IU/L (42-121); ANION GAP 8 (5-13); ASPARTATE AMINO TRANSFERASE 162 IU/L (15-46); BILIRUBIN,INDIRECT 0.7 mg/dl (0-1.1); BILIRUBIN,TOTAL 0.7 mg/dl (0.2-1.3); BLOOD UREA NITROGEN 2 mg/dl (7-20); CALCIUM 8.5 mg/dl (8.4-10.2); CARBON DIOXIDE 29 mmol/L (21-31); CHLORIDE 101 mmol/L (97-110); CREATININE 0.47 mg/dl (0.44-1.00); Estimated GFR > 60 mL/min (>60); GLUCOSE 69 mg/dl (70-220); MAGNESIUM 1.5 mg/dl (1.7-2.5); SODIUM 138 mmol/L (135-144)
[2018-12-25 07:53] LABS: INR 1.39; PROTIME 17.2 Sec (11.9-14.9); PT RATIO 1.3
[2018-12-25 07:54] LABS: PARTIAL THROMBOPLASTIN TIME 36.9 Sec (23.0-35.0)
[2018-12-25] MEDS: FAMOTIDINE 20 MG TAB PO (08:54)
[2018-12-25] MEDS: BENZONATATE 100 MG CAP PO ×3 (08:54→21:20)
[2018-12-25] MEDS: SPIRONOLACTONE 50 MG TAB PO (10:23)
[2018-12-25] MEDS: MAGNESIUM SULFATE 3 GM in DEXTROSE 5% 100 ML IVPB (15:54)
[2018-12-26] MEDS: morphine LIQ (10 MG/5 ML) CUP PO ×8 (00:38→23:51)
[2018-12-26 05:35] LABS: ADD MAN DIFF? NO
[2018-12-26 05:40] LABS: BASOPHIL # 0.1 10^3/ul (0.0-0.1); BASOPHILS % 1.2 % (0.0-2.0); EOSINOPHILS # 0.1 10^3/ul (0.0-0.5); EOSINOPHILS % 1.2 % (0.0-7.0); HEMOGLOBIN 10.9 g/dl (12.0-16.0); LYMPHOCYTES # 1.8 10^3/ul (0.8-2.9); LYMPHOCYTES % 19.3 % (15.0-51.0); MEAN CORPUSCULAR HEMOGLOBIN 35.2 pg (29.0-33.0); MEAN CORPUSCULAR VOLUME 106.5 fl (82.0-101.0); MEAN PLATELET VOLUME 11.3 fl (7.4-10.4); MONOCYTE # 0.9 10^3/ul (0.3-0.9); MONOCYTES % 9.6 % (0.0-11.0); NEUTROPHIL # 6.2 10^3/ul (1.6-7.5); NEUTROPHILS % 68.4 % (39.0-77.0); PLATELET COUNT 158 10^3/UL (140-415); RED CELL DISTRIBUTION WIDTH 12.3 % (11.5-14.5)
[2018-12-26 05:40] LABS: WHITE BLOOD COUNT 9.1 10^3/ul (4.8-10.8)
[2018-12-26 06:32] LABS: ALANINE AMINOTRANSFERASE 29 IU/L (13-69); ALBUMIN/GLOBULIN RATIO 0.81; ALKALINE PHOSPHATASE 231 IU/L (42-121); ANION GAP 11 (5-13); ASPARTATE AMINO TRANSFERASE 193 IU/L (15-46); BILIRUBIN,INDIRECT 0.7 mg/dl (0-1.1); BILIRUBIN,TOTAL 0.7 mg/dl (0.2-1.3); BLOOD UREA NITROGEN 2 mg/dl (7-20); CALCIUM 8.8 mg/dl (8.4-10.2); CARBON DIOXIDE 30 mmol/L (21-31); CHLORIDE 97 mmol/L (97-110); CREATININE 0.48 mg/dl (0.44-1.00); Estimated GFR > 60 mL/min (>60); GLUCOSE 72 mg/dl (70-220); LIPASE 471 U/L (23-300); MAGNESIUM 1.6 mg/dl (1.7-2.5); SODIUM 138 mmol/L (135-144); TOTAL PROTEIN 6.7 g/dl (6.1-8.1)
[2018-12-26] MEDS: BENZONATATE 100 MG CAP PO ×3 (08:38→20:50)
[2018-12-26] MEDS: SPIRONOLACTONE 50 MG TAB PO (08:38)
[2018-12-26] MEDS: FAMOTIDINE 20 MG TAB PO (08:39)
[2018-12-26] MEDS: MAGNESIUM SULFATE 3 GM in DEXTROSE 5% 100 ML IVPB (11:00)
[2018-12-27] MEDS: morphine LIQ (10 MG/5 ML) CUP PO ×7 (03:14→22:43)
[2018-12-27 06:04] LABS: ADD MAN DIFF? NO
[2018-12-27 06:39] LABS: BASOPHIL # 0.1 10^3/ul (0.0-0.1); BASOPHILS % 1.2 % (0.0-2.0); EOSINOPHILS # 0.1 10^3/ul (0.0-0.5); EOSINOPHILS % 1.3 % (0.0-7.0); HEMATOCRIT 29.1 % (37.0-47.0); HEMOGLOBIN 9.9 g/dl (12.0-16.0); LYMPHOCYTES # 1.2 10^3/ul (0.8-2.9); LYMPHOCYTES % 19.9 % (15.0-51.0); MEAN CORPUSCULAR HEMOGLOBIN 35.4 pg (29.0-33.0); MEAN CORPUSCULAR VOLUME 103.9 fl (82.0-101.0); MEAN PLATELET VOLUME 11.4 fl (7.4-10.4); MONOCYTE # 0.6 10^3/ul (0.3-0.9); MONOCYTES % 10.2 % (0.0-11.0); NEUTROPHILS % 67.2 % (39.0-77.0); PLATELET COUNT 127 10^3/UL (140-415)
[2018-12-27 06:42] LABS: INR 1.34; PROTIME 16.7 Sec (11.9-14.9); PT RATIO 1.3
[2018-12-27 06:43] LABS: PARTIAL THROMBOPLASTIN TIME 40.4 Sec (23.0-35.0)
[2018-12-27 06:56] LABS: ALANINE AMINOTRANSFERASE 32 IU/L (13-69); ALBUMIN 2.6 g/dl (3.3-4.9); ALKALINE PHOSPHATASE 201 IU/L (42-121); AMYLASE 68 U/L (11-123); ANION GAP 7 (5-13); ASPARTATE AMINO TRANSFERASE 173 IU/L (15-46); BILIRUBIN,INDIRECT 0.7 mg/dl (0-1.1); BILIRUBIN,TOTAL 0.7 mg/dl (0.2-1.3); CALCIUM 8.6 mg/dl (8.4-10.2); CARBON DIOXIDE 27 mmol/L (21-31); CHLORIDE 103 mmol/L (97-110); CREATININE 0.44 mg/dl (0.44-1.00); Estimated GFR > 60 mL/min (>60); GLUCOSE 76 mg/dl (70-220); LIPASE 514 U/L (23-300); MAGNESIUM 1.4 mg/dl (1.7-2.5); POTASSIUM 3.9 mmol/L (3.5-5.1); SODIUM 137 mmol/L (135-144); TOTAL PROTEIN 5.9 g/dl (6.1-8.1)
[2018-12-27 06:57] LABS: ALBUMIN/GLOBULIN RATIO 0.78
[2018-12-27 07:24] LABS: BLOOD UREA NITROGEN < 2 mg/dl (7-20)
[2018-12-27] MEDS: FAMOTIDINE 20 MG TAB PO (08:43)
[2018-12-27] MEDS: BENZONATATE 100 MG CAP PO ×3 (08:43→20:05)
[2018-12-27] MEDS: SPIRONOLACTONE 50 MG TAB PO (08:43)
[2018-12-27] MEDS: PHYTONADIONE 10 MG/ML INJ IM (09:23)
[2018-12-27] MEDS: MAGNESIUM SULFATE 3 GM in DEXTROSE 5% 100 ML IVPB (10:59)
[2018-12-28] MEDS: morphine LIQ (10 MG/5 ML) CUP PO ×8 (01:45→23:09)
[2018-12-28 05:38] LABS: ADD MAN DIFF? NO
[2018-12-28 05:43] LABS: WHITE BLOOD COUNT 6.5 10^3/ul (4.8-10.8)
[2018-12-28 05:43] LABS: BASOPHIL # 0.1 10^3/ul (0.0-0.1); BASOPHILS % 1.4 % (0.0-2.0); EOSINOPHILS # 0.1 10^3/ul (0.0-0.5); EOSINOPHILS % 0.9 % (0.0-7.0); HEMATOCRIT 30.1 % (37.0-47.0); HEMOGLOBIN 9.9 g/dl (12.0-16.0); LYMPHOCYTES # 1.3 10^3/ul (0.8-2.9); LYMPHOCYTES % 20.6 % (15.0-51.0); MEAN CORPUSCULAR HEMOGLOBIN 34.7 pg (29.0-33.0); MEAN CORPUSCULAR HGB CONC 32.9 g/dl (32.0-37.0); MEAN CORPUSCULAR VOLUME 105.6 fl (82.0-101.0); MEAN PLATELET VOLUME 11.1 fl (7.4-10.4); MONOCYTE # 0.6 10^3/ul (0.3-0.9); MONOCYTES % 9.4 % (0.0-11.0); NEUTROPHIL # 4.4 10^3/ul (1.6-7.5); NEUTROPHILS % 67.4 % (39.0-77.0); PLATELET COUNT 114 10^3/UL (140-415); RED BLOOD COUNT 2.85 10^6/ul (4.20-5.40); RED CELL DISTRIBUTION WIDTH 12.1 % (11.5-14.5)
[2018-12-28 06:01] LABS: INR 1.36; PROTIME 16.9 Sec (11.9-14.9); PT RATIO 1.3
[2018-12-28 06:02] LABS: PARTIAL THROMBOPLASTIN TIME 36.4 Sec (23.0-35.0)
[2018-12-28 06:03] LABS: ALANINE AMINOTRANSFERASE 35 IU/L (13-69); ALBUMIN 2.7 g/dl (3.3-4.9); ALBUMIN/GLOBULIN RATIO 0.79; ALKALINE PHOSPHATASE 196 IU/L (42-121); AMYLASE 76 U/L (11-123); ANION GAP 9 (5-13); ASPARTATE AMINO TRANSFERASE 195 IU/L (15-46); BILIRUBIN,INDIRECT 0.8 mg/dl (0-1.1); BILIRUBIN,TOTAL 0.8 mg/dl (0.2-1.3); BLOOD UREA NITROGEN 2 mg/dl (7-20); CALCIUM 8.6 mg/dl (8.4-10.2); CARBON DIOXIDE 27 mmol/L (21-31); CHLORIDE 102 mmol/L (97-110); CREATININE 0.43 mg/dl (0.44-1.00); Estimated GFR > 60 mL/min (>60); GLUCOSE 67 mg/dl (70-220); LIPASE 498 U/L (23-300); MAGNESIUM 1.6 mg/dl (1.7-2.5); POTASSIUM 4.1 mmol/L (3.5-5.1); SODIUM 138 mmol/L (135-144); TOTAL PROTEIN 6.1 g/dl (6.1-8.1)
[2018-12-28] MEDS: BENZONATATE 100 MG CAP PO ×3 (08:39→20:09)
[2018-12-28] MEDS: SPIRONOLACTONE 50 MG TAB PO (08:39)
[2018-12-28] MEDS: FAMOTIDINE 20 MG TAB PO (08:39)
[2018-12-28] MEDS: MAGNESIUM SULFATE 3 GM in DEXTROSE 5% 100 ML IVPB (11:59)
[2018-12-29] MEDS: morphine LIQ (10 MG/5 ML) CUP PO ×8 (02:10→23:34)
[2018-12-29 06:02] LABS: ADD MAN DIFF? NO
[2018-12-29 06:12] LABS: WHITE BLOOD COUNT 6.1 10^3/ul (4.8-10.8)
[2018-12-29 06:12] LABS: BASOPHIL # 0.1 10^3/ul (0.0-0.1); BASOPHILS % 1.1 % (0.0-2.0); EOSINOPHILS # 0.1 10^3/ul (0.0-0.5); EOSINOPHILS % 1.8 % (0.0-7.0); HEMOGLOBIN 10.1 g/dl (12.0-16.0); LYMPHOCYTES # 1.3 10^3/ul (0.8-2.9); LYMPHOCYTES % 21.6 % (15.0-51.0); MEAN CORPUSCULAR HEMOGLOBIN 34.9 pg (29.0-33.0); MEAN CORPUSCULAR HGB CONC 33.7 g/dl (32.0-37.0); MEAN CORPUSCULAR VOLUME 103.8 fl (82.0-101.0); MEAN PLATELET VOLUME 11.5 fl (7.4-10.4); MONOCYTE # 0.6 10^3/ul (0.3-0.9); MONOCYTES % 9.3 % (0.0-11.0); NEUTROPHILS % 65.9 % (39.0-77.0); PLATELET COUNT 133 10^3/UL (140-415); RED BLOOD COUNT 2.89 10^6/ul (4.20-5.40); RED CELL DISTRIBUTION WIDTH 11.9 % (11.5-14.5)
[2018-12-29 06:42] LABS: PROTIME 16.3 Sec (11.9-14.9); PT RATIO 1.3
[2018-12-29 06:43] LABS: PARTIAL THROMBOPLASTIN TIME 38.9 Sec (23.0-35.0)
[2018-12-29 06:59] LABS: ALANINE AMINOTRANSFERASE 33 IU/L (13-69); ALBUMIN 2.8 g/dl (3.3-4.9); ALKALINE PHOSPHATASE 201 IU/L (42-121); ANION GAP 9 (5-13); ASPARTATE AMINO TRANSFERASE 190 IU/L (15-46); BILIRUBIN,INDIRECT 0.8 mg/dl (0-1.1); BILIRUBIN,TOTAL 0.8 mg/dl (0.2-1.3); BLOOD UREA NITROGEN < 2 mg/dl (7-20); CALCIUM 8.7 mg/dl (8.4-10.2); CARBON DIOXIDE 29 mmol/L (21-31); CHLORIDE 100 mmol/L (97-110); CREATININE 0.49 mg/dl (0.44-1.00); Estimated GFR > 60 mL/min (>60); GLUCOSE 80 mg/dl (70-220); LIPASE 599 U/L (23-300); MAGNESIUM 1.4 mg/dl (1.7-2.5); POTASSIUM 4.4 mmol/L (3.5-5.1); SODIUM 138 mmol/L (135-144); TOTAL PROTEIN 6.3 g/dl (6.1-8.1)
[2018-12-29] MEDS: BENZONATATE 100 MG CAP PO ×3 (08:13→20:34)
[2018-12-29] MEDS: FAMOTIDINE 20 MG TAB PO (08:14)
[2018-12-29] MEDS: SPIRONOLACTONE 50 MG TAB PO (08:14)
[2018-12-29] MEDS: IOHEXOL 14.3 MG(I)/ML (ADULT) BTL PO (11:20)
[2018-12-29] MEDS: MAGNESIUM SULFATE 3 GM in DEXTROSE 5% 100 ML IVPB (11:20)
[2018-12-29] MEDS: IOHEXOL 300MG/ML 150 ML BTL (13:25)
[2018-12-29] MEDS: SOD CHLORIDE 0.9% 100 ML (13:25)
[2018-12-29] MEDS: PHYTONADIONE 10 MG in DEXTROSE 5% 50 ML IVPB (17:08)
[2018-12-29] MEDS: hydrOXYzine HCL 10 MG TAB PO (17:18)
[2018-12-30] MEDS: morphine LIQ (10 MG/5 ML) CUP PO ×6 (02:39→21:39)
[2018-12-30 06:12] LABS: ADD MAN DIFF? NO
[2018-12-30 06:28] LABS: BASOPHIL # 0.1 10^3/ul (0.0-0.1); BASOPHILS % 1.2 % (0.0-2.0); EOSINOPHILS # 0.1 10^3/ul (0.0-0.5); EOSINOPHILS % 1.8 % (0.0-7.0); HEMATOCRIT 29.2 % (37.0-47.0); LYMPHOCYTES % 16.8 % (15.0-51.0); MEAN CORPUSCULAR HEMOGLOBIN 35.1 pg (29.0-33.0); MEAN CORPUSCULAR HGB CONC 34.2 g/dl (32.0-37.0); MEAN CORPUSCULAR VOLUME 102.5 fl (82.0-101.0); MEAN PLATELET VOLUME 11.7 fl (7.4-10.4); MONOCYTE # 0.7 10^3/ul (0.3-0.9); NEUTROPHIL # 4.2 10^3/ul (1.6-7.5); NEUTROPHILS % 68.9 % (39.0-77.0); PLATELET COUNT 126 10^3/UL (140-415); RED BLOOD COUNT 2.85 10^6/ul (4.20-5.40)
[2018-12-30 06:28] LABS: WHITE BLOOD COUNT 6.1 10^3/ul (4.8-10.8)
[2018-12-30 06:36] LABS: INR 1.38; PROTIME 17.1 Sec (11.9-14.9); PT RATIO 1.3
[2018-12-30 06:51] LABS: ALANINE AMINOTRANSFERASE 36 IU/L (13-69); ALBUMIN 2.8 g/dl (3.3-4.9); ALKALINE PHOSPHATASE 196 IU/L (42-121); AMYLASE 72 U/L (11-123); ANION GAP 10 (5-13); ASPARTATE AMINO TRANSFERASE 169 IU/L (15-46); BILIRUBIN,INDIRECT 0.8 mg/dl (0-1.1); BILIRUBIN,TOTAL 0.8 mg/dl (0.2-1.3); CALCIUM 8.7 mg/dl (8.4-10.2); CARBON DIOXIDE 29 mmol/L (21-31); CHLORIDE 98 mmol/L (97-110); CREATININE 0.41 mg/dl (0.44-1.00); Estimated GFR > 60 mL/min (>60); GLUCOSE 81 mg/dl (70-220); LIPASE 535 U/L (23-300); MAGNESIUM 1.5 mg/dl (1.7-2.5); POTASSIUM 4.2 mmol/L (3.5-5.1); SODIUM 137 mmol/L (135-144); TOTAL PROTEIN 6.3 g/dl (6.1-8.1)
[2018-12-30 06:57] LABS: BLOOD UREA NITROGEN < 2 mg/dl (7-20)
[2018-12-30] MEDS: SPIRONOLACTONE 50 MG TAB PO (08:31)
[2018-12-30] MEDS: BENZONATATE 100 MG CAP PO ×3 (08:31→21:12)
[2018-12-30] MEDS: METOCLOPRAMIDE 10 MG INJ IV ×3 (08:31→17:29)
[2018-12-30] MEDS: FAMOTIDINE 20 MG TAB PO (08:31)
[2018-12-30] MEDS: PHYTONADIONE 10 MG in DEXTROSE 5% 50 ML IVPB (09:10)
[2018-12-30] MEDS: PHYTONADIONE 1 MG/0.5 ML SYG SC (09:17)
[2018-12-30] MEDS: MAGNESIUM SULFATE 3 GM in DEXTROSE 5% 100 ML IVPB (10:05)
[2018-12-31] MEDS: METOCLOPRAMIDE 10 MG INJ IV ×5 (05:46→23:30)
[2018-12-31 06:05] LABS: ADD MAN DIFF? NO
[2018-12-31 06:16] LABS: BASOPHIL # 0.1 10^3/ul (0.0-0.1); BASOPHILS % 1.3 % (0.0-2.0); EOSINOPHILS # 0.1 10^3/ul (0.0-0.5); EOSINOPHILS % 2.1 % (0.0-7.0); HEMATOCRIT 29.4 % (37.0-47.0); HEMOGLOBIN 9.9 g/dl (12.0-16.0); LYMPHOCYTES % 18.2 % (15.0-51.0); MEAN CORPUSCULAR HEMOGLOBIN 34.4 pg (29.0-33.0); MEAN CORPUSCULAR HGB CONC 33.7 g/dl (32.0-37.0); MEAN CORPUSCULAR VOLUME 102.1 fl (82.0-101.0); MEAN PLATELET VOLUME 11.5 fl (7.4-10.4); MONOCYTE # 0.5 10^3/ul (0.3-0.9); MONOCYTES % 9.3 % (0.0-11.0); NEUTROPHIL # 3.6 10^3/ul (1.6-7.5); NEUTROPHILS % 68.7 % (39.0-77.0); PLATELET COUNT 123 10^3/UL (140-415); RED BLOOD COUNT 2.88 10^6/ul (4.20-5.40); RED CELL DISTRIBUTION WIDTH 12.3 % (11.5-14.5)
[2018-12-31 06:16] LABS: WHITE BLOOD COUNT 5.3 10^3/ul (4.8-10.8)
[2018-12-31 06:37] LABS: INR 1.39; PROTIME 17.2 Sec (11.9-14.9); PT RATIO 1.3
[2018-12-31 06:38] LABS: PARTIAL THROMBOPLASTIN TIME 39.7 Sec (23.0-35.0)
[2018-12-31 07:47] LABS: ALANINE AMINOTRANSFERASE 33 IU/L (13-69); ALBUMIN 2.6 g/dl (3.3-4.9); ALBUMIN/GLOBULIN RATIO 0.76; ALKALINE PHOSPHATASE 187 IU/L (42-121); ANION GAP 10 (5-13); ASPARTATE AMINO TRANSFERASE 156 IU/L (15-46); BILIRUBIN,INDIRECT 0.7 mg/dl (0-1.1); BILIRUBIN,TOTAL 0.7 mg/dl (0.2-1.3); BLOOD UREA NITROGEN 2 mg/dl (7-20); CALCIUM 8.6 mg/dl (8.4-10.2); CARBON DIOXIDE 28 mmol/L (21-31); CHLORIDE 101 mmol/L (97-110); CREATININE 0.52 mg/dl (0.44-1.00); Estimated GFR > 60 mL/min (>60); GLUCOSE 81 mg/dl (70-220); LIPASE 734 U/L (23-300); MAGNESIUM 1.4 mg/dl (1.7-2.5); POTASSIUM 4.2 mmol/L (3.5-5.1); SODIUM 139 mmol/L (135-144)
[2018-12-31] MEDS: FAMOTIDINE 20 MG TAB PO (08:28)
[2018-12-31] MEDS: SPIRONOLACTONE 50 MG TAB PO (08:28)
[2018-12-31] MEDS: BENZONATATE 100 MG CAP PO ×3 (08:28→20:11)
[2018-12-31] MEDS: morphine LIQ (10 MG/5 ML) CUP PO ×3 (08:32→11:54)
[2018-12-31] MEDS: PHYTONADIONE 10 MG in DEXTROSE 5% 50 ML IVPB (09:54)
[2018-12-31] MEDS: MAGNESIUM SULFATE 4 GM/100 ML 100 ML IVPB (11:47)
[2018-12-31] MEDS: morphine 4 MG/ML VIAL IV (18:47)
[2019-01-01] MEDS: METOCLOPRAMIDE 10 MG INJ IV ×3 (05:34→17:37)
[2019-01-01 05:56] LABS: ADD MAN DIFF? NO
[2019-01-01 06:05] LABS: WHITE BLOOD COUNT 5.7 10^3/ul (4.8-10.8)
[2019-01-01 06:05] LABS: BASOPHIL # 0.1 10^3/ul (0.0-0.1); BASOPHILS % 1.1 % (0.0-2.0); EOSINOPHILS # 0.1 10^3/ul (0.0-0.5); EOSINOPHILS % 1.9 % (0.0-7.0); HEMATOCRIT 29.2 % (37.0-47.0); HEMOGLOBIN 9.6 g/dl (12.0-16.0); LYMPHOCYTES # 1.1 10^3/ul (0.8-2.9); LYMPHOCYTES % 19.1 % (15.0-51.0); MEAN CORPUSCULAR HEMOGLOBIN 34.2 pg (29.0-33.0); MEAN CORPUSCULAR HGB CONC 32.9 g/dl (32.0-37.0); MEAN CORPUSCULAR VOLUME 103.9 fl (82.0-101.0); MEAN PLATELET VOLUME 11.5 fl (7.4-10.4); MONOCYTE # 0.5 10^3/ul (0.3-0.9); MONOCYTES % 8.9 % (0.0-11.0); NEUTROPHIL # 3.9 10^3/ul (1.6-7.5); NEUTROPHILS % 68.6 % (39.0-77.0); PLATELET COUNT 144 10^3/UL (140-415); RED BLOOD COUNT 2.81 10^6/ul (4.20-5.40); RED CELL DISTRIBUTION WIDTH 12.5 % (11.5-14.5)
[2019-01-01 06:25] LABS: INR 1.35; PROTIME 16.8 Sec (11.9-14.9); PT RATIO 1.3
[2019-01-01 06:26] LABS: PARTIAL THROMBOPLASTIN TIME 39.9 Sec (23.0-35.0)
[2019-01-01 06:29] LABS: ALANINE AMINOTRANSFERASE 24 IU/L (13-69); ALBUMIN 2.7 g/dl (3.3-4.9); ALBUMIN/GLOBULIN RATIO 0.77; ALKALINE PHOSPHATASE 187 IU/L (42-121); ANION GAP 10 (5-13); ASPARTATE AMINO TRANSFERASE 145 IU/L (15-46); BILIRUBIN,INDIRECT 0.6 mg/dl (0-1.1); BILIRUBIN,TOTAL 0.6 mg/dl (0.2-1.3); BLOOD UREA NITROGEN 3 mg/dl (7-20); CALCIUM 8.7 mg/dl (8.4-10.2); CARBON DIOXIDE 28 mmol/L (21-31); CHLORIDE 102 mmol/L (97-110); Estimated GFR > 60 mL/min (>60); GLUCOSE 78 mg/dl (70-220); LIPASE 1016 U/L (23-300); MAGNESIUM 1.6 mg/dl (1.7-2.5); POTASSIUM 4.3 mmol/L (3.5-5.1); SODIUM 140 mmol/L (135-144); TOTAL PROTEIN 6.2 g/dl (6.1-8.1)
[2019-01-01] MEDS ORDERED: BENZONATATE 100 MG CAP PO (08:30)
[2019-01-01] MEDS: MAGNESIUM OXIDE 400 MG TAB PO ×2 (09:14→20:11)
[2019-01-01] MEDS: morphine LIQ (10 MG/5 ML) CUP PO ×5 (09:14→22:30)
[2019-01-01] MEDS: SPIRONOLACTONE 50 MG TAB PO (09:14)
[2019-01-01] MEDS: FAMOTIDINE 20 MG TAB PO (09:14)
[2019-01-01] MEDS: MAGNESIUM SULFATE 3 GM in DEXTROSE 5% 100 ML IVPB (09:17)
[2019-01-02] MEDS: METOCLOPRAMIDE 10 MG INJ IV ×5 (01:12→23:37)
[2019-01-02] MEDS: morphine LIQ (10 MG/5 ML) CUP PO ×7 (01:22→21:03)
[2019-01-02 07:01] LABS: ALANINE AMINOTRANSFERASE 28 IU/L (13-69); ALBUMIN 2.7 g/dl (3.3-4.9); ALBUMIN/GLOBULIN RATIO 0.81; ALKALINE PHOSPHATASE 182 IU/L (42-121); ANION GAP 8 (5-13); ASPARTATE AMINO TRANSFERASE 137 IU/L (15-46); BILIRUBIN,INDIRECT 0.5 mg/dl (0-1.1); BILIRUBIN,TOTAL 0.5 mg/dl (0.2-1.3); BLOOD UREA NITROGEN 3 mg/dl (7-20); CALCIUM 8.6 mg/dl (8.4-10.2); CARBON DIOXIDE 29 mmol/L (21-31); CHLORIDE 102 mmol/L (97-110); CREATININE 0.51 mg/dl (0.44-1.00); Estimated GFR > 60 mL/min (>60); GLUCOSE 71 mg/dl (70-220); LIPASE 1134 U/L (23-300); MAGNESIUM 1.4 mg/dl (1.7-2.5); POTASSIUM 4.5 mmol/L (3.5-5.1); SODIUM 139 mmol/L (135-144)
[2019-01-02] MEDS: SPIRONOLACTONE 50 MG TAB PO (08:29)
[2019-01-02] MEDS: MAGNESIUM OXIDE 400 MG TAB PO ×2 (08:29→20:36)
[2019-01-02] MEDS: FAMOTIDINE 20 MG TAB PO (08:29)
[2019-01-02] MEDS: MAGNESIUM SULFATE 3 GM in DEXTROSE 5% 100 ML IVPB (11:13)
[2019-01-03] MEDS: morphine LIQ (10 MG/5 ML) CUP PO ×3 (00:37→08:16)
[2019-01-03] MEDS: METOCLOPRAMIDE 10 MG INJ IV (05:14)
[2019-01-03 06:20] LABS: ADD MAN DIFF? NO
[2019-01-03 06:29] LABS: BASOPHIL # 0.1 10^3/ul (0.0-0.1); BASOPHILS % 1.2 % (0.0-2.0); EOSINOPHILS # 0.2 10^3/ul (0.0-0.5); HEMATOCRIT 29.3 % (37.0-47.0); HEMOGLOBIN 9.7 g/dl (12.0-16.0); LYMPHOCYTES # 1.3 10^3/ul (0.8-2.9); LYMPHOCYTES % 22.1 % (15.0-51.0); MEAN CORPUSCULAR HEMOGLOBIN 34.3 pg (29.0-33.0); MEAN CORPUSCULAR HGB CONC 33.1 g/dl (32.0-37.0); MEAN CORPUSCULAR VOLUME 103.5 fl (82.0-101.0); MEAN PLATELET VOLUME 11.3 fl (7.4-10.4); MONOCYTE # 0.6 10^3/ul (0.3-0.9); MONOCYTES % 9.8 % (0.0-11.0); NEUTROPHIL # 3.7 10^3/ul (1.6-7.5); NEUTROPHILS % 63.7 % (39.0-77.0); PLATELET COUNT 137 10^3/UL (140-415); RED BLOOD COUNT 2.83 10^6/ul (4.20-5.40); RED CELL DISTRIBUTION WIDTH 12.6 % (11.5-14.5)
[2019-01-03 06:29] LABS: WHITE BLOOD COUNT 5.7 10^3/ul (4.8-10.8)
[2019-01-03 06:43] LABS: INR 1.28; PROTIME 16.1 Sec (11.9-14.9); PT RATIO 1.3
[2019-01-03 06:44] LABS: PARTIAL THROMBOPLASTIN TIME 38.6 Sec (23.0-35.0)
[2019-01-03 06:55] LABS: ALANINE AMINOTRANSFERASE 28 IU/L (13-69); ALBUMIN 2.5 g/dl (3.3-4.9); ALBUMIN/GLOBULIN RATIO 0.71; ALKALINE PHOSPHATASE 169 IU/L (42-121); ANION GAP 10 (5-13); ASPARTATE AMINO TRANSFERASE 148 IU/L (15-46); BILIRUBIN,INDIRECT 0.5 mg/dl (0-1.1); BILIRUBIN,TOTAL 0.5 mg/dl (0.2-1.3); BLOOD UREA NITROGEN 3 mg/dl (7-20); CALCIUM 8.6 mg/dl (8.4-10.2); CARBON DIOXIDE 28 mmol/L (21-31); CHLORIDE 100 mmol/L (97-110); CREATININE 0.52 mg/dl (0.44-1.00); Estimated GFR > 60 mL/min (>60); GLUCOSE 80 mg/dl (70-220); LIPASE 1282 U/L (23-300); MAGNESIUM 1.5 mg/dl (1.7-2.5); POTASSIUM 4.5 mmol/L (3.5-5.1); SODIUM 138 mmol/L (135-144)
[2019-01-03] MEDS: SPIRONOLACTONE 50 MG TAB PO (08:16)
[2019-01-03] MEDS: FAMOTIDINE 20 MG TAB PO (08:16)
[2019-01-03] MEDS: MAGNESIUM OXIDE 400 MG TAB PO (08:16)
== END 2019-01-03 10:38 | disposition home or self-care (01) | DRG 442 ==
LOC: E/R 11:02 → PP2 15:43
PROC: 0FB13ZX Excision of Right Lobe Liver, Percutaneous Approach, Diagnostic (ICD-10-PCS; principal; 2018-12-16)
PROC: 0W9B3ZZ Drainage of Left Pleural Cavity, Percutaneous Approach (ICD-10-PCS; 2018-12-18)
PROC: 0W993ZZ Drainage of Right Pleural Cavity, Percutaneous Approach (ICD-10-PCS; 2018-12-19)
DX: K75.81 Nonalcoholic steatohepatitis (NASH) (principal); J90 Pleural effusion, not elsewhere classified; R18.8 Other ascites; D68.4 Acquired coagulation factor deficiency; D69.6 Thrombocytopenia, unspecified; D63.8 Anemia in other chronic diseases classified elsewhere; E83.42 Hypomagnesemia; E87.6 Hypokalemia; I10 Essential (primary) hypertension; I95.9 Hypotension, unspecified; R06.02 Shortness of breath; R21 Rash and other nonspecific skin eruption; R16.2 Hepatomegaly with splenomegaly, not elsewhere classified; R74.8 Abnormal levels of other serum enzymes; R94.5 Abnormal results of liver function studies; R11.0 Nausea; R14.0 Abdominal distension (gaseous)
CPT/HCPCS: 32555; 36415; 36600; 71045; 71260; 74177; 74181; 76705; 76942; 78226; 80048; 80053; 80076; 81001; 81025; 82042; 82103; 82150; 82390; 82465; 82607; 82746; 82784; 82803; 82945; 82962; 82977; 83010; 83036; 83540; 83615; 83690; 83735; 83921; 84157; 85025; 85610; 85730; 86038; 86255; 86704; 86709; 86803; 87070; 87102; 87116; 87340; 88307; 88313; 89051; 94640; 96361; 96374; 96375; 99285-25; J3430

== ENCOUNTER 2019-01-26 20:35 | Inpatient (IN) | payer BC ==
[2019-01-26] MEDS: ONDANSETRON 4 MG INJ IV ×2 (21:21→23:48)
[2019-01-26] MEDS: morphine 4 MG/ML VIAL IV (21:23)
[2019-01-26 21:46] LABS: WHITE BLOOD COUNT 7.3 10^3/ul (4.8-10.8)
[2019-01-26 21:46] LABS: ABNORMAL IP MESSAGE 1; HEMATOCRIT 36.3 % (37.0-47.0); HEMOGLOBIN 12.7 g/dl (12.0-16.0); MEAN CORPUSCULAR HEMOGLOBIN 32.5 pg (29.0-33.0); MEAN CORPUSCULAR VOLUME 92.8 fl (82.0-101.0); MEAN PLATELET VOLUME 11.2 fl (7.4-10.4); RED BLOOD COUNT 3.91 10^6/ul (4.20-5.40); RED CELL DISTRIBUTION WIDTH 13.9 % (11.5-14.5)
[2019-01-26 21:48] LABS: PLATELET COUNT 75 10^3/UL (140-415); POSITIVE DIFF @See below
[2019-01-26 21:49] LABS: ADD MAN DIFF? YES
[2019-01-26 21:53] LABS: INR 1.08; PROTIME 14.1 Sec (11.9-14.9); PT RATIO 1.1
[2019-01-26 21:54] LABS: ALANINE AMINOTRANSFERASE 53 IU/L (13-69); ALBUMIN 3.9 g/dl (3.3-4.9); ALBUMIN/GLOBULIN RATIO 0.86; ALKALINE PHOSPHATASE 294 IU/L (42-121); ANION GAP 17 (5-13); ASPARTATE AMINO TRANSFERASE 229 IU/L (15-46); BILIRUBIN,INDIRECT 0.6 mg/dl (0-1.1); BILIRUBIN,TOTAL 0.6 mg/dl (0.2-1.3); BLOOD UREA NITROGEN 4 mg/dl (7-20); CARBON DIOXIDE 24 mmol/L (21-31); CHLORIDE 108 mmol/L (97-110); CREATININE 0.43 mg/dl (0.44-1.00); Estimated GFR > 60 mL/min (>60); GLUCOSE 100 mg/dl (70-220); PARTIAL THROMBOPLASTIN TIME 35.1 Sec (23.0-35.0); POTASSIUM 3.3 mmol/L (3.5-5.1); SODIUM 149 mmol/L (135-144); TOTAL PROTEIN 8.4 g/dl (6.1-8.1)
[2019-01-26] MEDS: SOD CHLORIDE 0.9% 1,000 ML IV (21:54)
[2019-01-26 21:57] LABS: AMMONIA < 9 umol/l (9-30)
[2019-01-26 22:04] LABS: LIPASE 3593 U/L (23-300)
[2019-01-26 22:05] LABS: TROPONIN-I < 0.012 ng/ml (0.000-0.120)
[2019-01-26 22:14] LABS: BAND NEUTROPHILS #M 0.1 10^3/ul (0.0-0.6); BAND NEUTROPHILS % (M) 2 % (0-4); BASOPHILS % (M) 1 % (0-2); EOSINOPHILS % (M) 3 % (0-7); LYMPHOCYTES #M 3.7 10^3/ul (0.8-2.9); LYMPHOCYTES % (M) 51 % (15-51); MONOCYTE #M 0.1 10^3/ul (0.3-0.9); MONOCYTES % (M) 2 % (0-11); PLATELET ESTIMATE DECREASED; POLYCHROMASIA 1+ (0-0); SEGMENTED NEUTROPHILS (M) % 41 % (39-77); SMUDGE%M 2 % (0-0)
[2019-01-26] MEDS: LACTATED RINGER'S 1,000 ML IV (22:42)
[2019-01-26] MEDS: KETOROLAC 15 MG INJ IV (22:42)
[2019-01-26] MEDS ORDERED: LORAZEPAM 2 MG INJ IV (23:30)
[2019-01-26] MEDS: HYDROmorphONE 0.5 MG/0.5 ML SYG IV (23:48)
[2019-01-27] MEDS: POTASSIUM CHLORIDE 30 MEQ in SOD CHLORIDE 0.45% 1,000 ML IV ×4 (00:26→22:58)
[2019-01-27 02:17] LABS: AMPHETAMINE/METHAMPHETAMINE Negative (NEGATIVE); BARBITURATES Negative (NEGATIVE); BENZODIAZEPINES Negative (NEGATIVE); CANNABINOIDS Negative (NEGATIVE); COCAINE NEGATIVE (NEGATIVE); OPIATES Positive (NEGATIVE)
[2019-01-27] MEDS: morphine 2 MG INJ IV ×5 (04:06→21:22)
[2019-01-27] MEDS: PANTOPRAZOLE 40 MG INJ IV ×2 (06:17→17:34)
[2019-01-27] MEDS: METOCLOPRAMIDE 10 MG INJ IV ×4 (06:18→21:21)
[2019-01-27 08:12] LABS: ALANINE AMINOTRANSFERASE 42 IU/L (13-69); ALBUMIN 3.1 g/dl (3.3-4.9); ALBUMIN/GLOBULIN RATIO 0.83; ALKALINE PHOSPHATASE 207 IU/L (42-121); AMYLASE 162 U/L (11-123); ANION GAP 11 (5-13); ASPARTATE AMINO TRANSFERASE 160 IU/L (15-46); BILIRUBIN,INDIRECT 0.5 mg/dl (0-1.1); BILIRUBIN,TOTAL 0.5 mg/dl (0.2-1.3); BLOOD UREA NITROGEN 3 mg/dl (7-20); CALCIUM 7.9 mg/dl (8.4-10.2); CARBON DIOXIDE 23 mmol/L (21-31); CHLORIDE 110 mmol/L (97-110); CREATININE 0.39 mg/dl (0.44-1.00); Estimated GFR > 60 mL/min (>60); GLUCOSE 65 mg/dl (70-220); LACTATE DEHYDROGENASE 640 IU/L (313-618); LIPASE 963 U/L (23-300); MAGNESIUM 1.4 mg/dl (1.7-2.5); POTASSIUM 3.7 mmol/L (3.5-5.1); SODIUM 144 mmol/L (135-144); TOTAL PROTEIN 6.8 g/dl (6.1-8.1)
[2019-01-27] MEDS: SPIRONOLACTONE 25 MG TAB PO (08:46)
[2019-01-27] MEDS: MAGNESIUM SULFATE 3 GM in DEXTROSE 5% 100 ML IVPB (13:15)
[2019-01-28 01:13] LABS: ADD UMIC NO; UR ASCORBIC ACID NEGATIVE (NEGATIVE); UR BILIRUBIN (Dip) NEGATIVE (NEGATIVE); UR BLOOD (Dip) NEGATIVE (NEGATIVE); UR CLARITY CLEAR (CLEAR); UR COLOR YELLOW (YELLOW); UR GLUCOSE (Dip) NEGATIVE (NEGATIVE); UR KETONES (Dip) 1+ mg/dL (NEGATIVE); UR LEUKOCYTE ESTERASE (Dip) NEGATIVE Leu/ul (NEGATIVE); UR NITRITE (Dip) NEGATIVE (NEGATIVE); UR TOTAL PROTEIN (Dip) NEGATIVE (NEGATIVE); UR UROBILINOGEN (Dip) NEGATIVE (NEGATIVE)
[2019-01-28] MEDS: morphine 2 MG INJ IV ×6 (01:14→22:38)
[2019-01-28] MEDS: METOCLOPRAMIDE 10 MG INJ IV ×4 (05:23→22:37)
[2019-01-28] MEDS: PANTOPRAZOLE 40 MG INJ IV ×2 (05:23→18:40)
[2019-01-28] MEDS: DIAZEPAM 2 MG TAB PO ×2 (08:28→20:50)
[2019-01-28] MEDS: SPIRONOLACTONE 25 MG TAB PO (08:28)
[2019-01-28] MEDS: POTASSIUM CHLORIDE 30 MEQ in SOD CHLORIDE 0.45% 1,000 ML IV ×3 (08:28→17:41)
[2019-01-28 08:29] LABS: ADD MAN DIFF? NO
[2019-01-28 08:45] LABS: WHITE BLOOD COUNT 2.7 10^3/ul (4.8-10.8)
[2019-01-28 08:45] LABS: ABNORMAL IP MESSAGE 1; BASOPHILS % 1.1 % (0.0-2.0); EOSINOPHILS # 0.1 10^3/ul (0.0-0.5); EOSINOPHILS % 2.2 % (0.0-7.0); HEMATOCRIT 27.6 % (37.0-47.0); HEMOGLOBIN 9.2 g/dl (12.0-16.0); LYMPHOCYTES # 0.7 10^3/ul (0.8-2.9); LYMPHOCYTES % 26.7 % (15.0-51.0); MEAN CORPUSCULAR HEMOGLOBIN 31.9 pg (29.0-33.0); MEAN CORPUSCULAR HGB CONC 33.3 g/dl (32.0-37.0); MEAN CORPUSCULAR VOLUME 95.8 fl (82.0-101.0); MEAN PLATELET VOLUME 11.4 fl (7.4-10.4); MONOCYTE # 0.3 10^3/ul (0.3-0.9); NEUTROPHIL # 1.6 10^3/ul (1.6-7.5); RED BLOOD COUNT 2.88 10^6/ul (4.20-5.40); RED CELL DISTRIBUTION WIDTH 13.8 % (11.5-14.5)
[2019-01-28 08:53] LABS: PLATELET COUNT 28 10^3/UL (140-415); POSITIVE DIFF @See below
[2019-01-28 08:58] LABS: INR 1.23; PROTIME 15.6 Sec (11.9-14.9); PT RATIO 1.2
[2019-01-28 08:59] LABS: PARTIAL THROMBOPLASTIN TIME 35.4 Sec (23.0-35.0)
[2019-01-28 09:18] LABS: ALANINE AMINOTRANSFERASE 39 IU/L (13-69); ALBUMIN 3.3 g/dl (3.3-4.9); ALBUMIN/GLOBULIN RATIO 0.86; ALKALINE PHOSPHATASE 224 IU/L (42-121); ANION GAP 9 (5-13); ASPARTATE AMINO TRANSFERASE 120 IU/L (15-46); BILIRUBIN,INDIRECT 1.2 mg/dl (0-1.1); BILIRUBIN,TOTAL 1.2 mg/dl (0.2-1.3); CALCIUM 8.4 mg/dl (8.4-10.2); CARBON DIOXIDE 25 mmol/L (21-31); CHLORIDE 101 mmol/L (97-110); CREATININE 0.37 mg/dl (0.44-1.00); Estimated GFR > 60 mL/min (>60); GLUCOSE 74 mg/dl (70-220); LIPASE 934 U/L (23-300); MAGNESIUM 1.8 mg/dl (1.7-2.5); POTASSIUM 4.3 mmol/L (3.5-5.1); SODIUM 135 mmol/L (135-144); TOTAL PROTEIN 7.1 g/dl (6.1-8.1)
[2019-01-28 09:37] LABS: BLOOD UREA NITROGEN < 2 mg/dl (7-20)
[2019-01-28 10:13] LABS: BASOPHILS % (M) 2 % (0-2); EOSINOPHILS % (M) 3 % (0-7); GIANT THROMBO% (M) 4 % (0-0); LYMPHOCYTES #M 1.1 10^3/ul (0.8-2.9); LYMPHOCYTES % (M) 44 % (15-51); MONOCYTES % (M) 2 % (0-11); MYELOCYTES % (M) 1 % (0-0); PLATELET ESTIMATE SIG DECREASED; POLYCHROMASIA 1+ (0-0); SEGMENTED NEUTROPHILS (M) % 48 % (39-77); SMUDGE%M 9 % (0-0)
[2019-01-29] MEDS: POTASSIUM CHLORIDE 30 MEQ in SOD CHLORIDE 0.45% 1,000 ML IV ×4 (00:18→23:18)
[2019-01-29] MEDS: morphine 2 MG INJ IV ×5 (02:30→21:20)
[2019-01-29] MEDS: PANTOPRAZOLE 40 MG INJ IV ×2 (06:26→17:56)
[2019-01-29] MEDS: METOCLOPRAMIDE 10 MG INJ IV ×4 (06:26→21:20)
[2019-01-29 08:38] LABS: ABNORMAL IP MESSAGE 1; HEMATOCRIT 25.6 % (37.0-47.0); HEMOGLOBIN 8.6 g/dl (12.0-16.0); MEAN CORPUSCULAR HEMOGLOBIN 32.3 pg (29.0-33.0); MEAN CORPUSCULAR HGB CONC 33.6 g/dl (32.0-37.0); MEAN CORPUSCULAR VOLUME 96.2 fl (82.0-101.0); MEAN PLATELET VOLUME 10.6 fl (7.4-10.4); RED BLOOD COUNT 2.66 10^6/ul (4.20-5.40)
[2019-01-29 08:38] LABS: WHITE BLOOD COUNT 1.9 10^3/ul (4.8-10.8)
[2019-01-29 08:45] LABS: POSITIVE DIFF @See below
[2019-01-29 08:46] LABS: ADD MAN DIFF? YES; PLATELET COUNT 23 10^3/UL (140-415)
[2019-01-29] MEDS: DIAZEPAM 2 MG TAB PO ×2 (08:52→20:30)
[2019-01-29] MEDS: SPIRONOLACTONE 25 MG TAB PO (08:52)
[2019-01-29 08:56] LABS: ALANINE AMINOTRANSFERASE 33 IU/L (13-69); ALBUMIN 3.2 g/dl (3.3-4.9); ALBUMIN/GLOBULIN RATIO 0.88; ALKALINE PHOSPHATASE 191 IU/L (42-121); AMYLASE 128 U/L (11-123); ANION GAP 9 (5-13); ASPARTATE AMINO TRANSFERASE 134 IU/L (15-46); BLOOD UREA NITROGEN < 2 mg/dl (7-20); CALCIUM 8.7 mg/dl (8.4-10.2); CARBON DIOXIDE 27 mmol/L (21-31); CHLORIDE 101 mmol/L (97-110); Estimated GFR > 60 mL/min (>60); GLUCOSE 74 mg/dl (70-220); LIPASE 976 U/L (23-300); MAGNESIUM 1.5 mg/dl (1.7-2.5); POTASSIUM 4.6 mmol/L (3.5-5.1); SODIUM 137 mmol/L (135-144); TOTAL PROTEIN 6.8 g/dl (6.1-8.1)
[2019-01-29 10:36] LABS: ANISOCYTOSIS 1+ (0-0); BAND NEUTROPHILS % (M) 4 % (0-4); EOSINOPHILS % (M) 4 % (0-7); HYPOCHROMASIA 1+ (0-0); LYMPHOCYTES #M 0.4 10^3/ul (0.8-2.9); LYMPHOCYTES % (M) 24 % (15-51); MICROCYTOSIS 1+ (0-0); MONOCYTES % (M) 5 % (0-11); PLATELET ESTIMATE SIG DECREASED; SEG NEUT #M 1.2 10^3/ul (1.6-7.5); SEGMENTED NEUTROPHILS (M) % 63 % (39-77); SMUDGE%M 6 % (0-0)
[2019-01-29] MEDS: MAGNESIUM SULFATE 3 GM in DEXTROSE 5% 100 ML IVPB (10:46)
[2019-01-29] MEDS: traMADol 50 MG TAB PO ×2 (11:48→18:02)
[2019-01-29 13:21] LABS: ADD MAN DIFF? NO
[2019-01-29 13:24] LABS: ABNORMAL IP MESSAGE 1; BASOPHILS % 0.9 % (0.0-2.0); EOSINOPHILS # 0.1 10^3/ul (0.0-0.5); EOSINOPHILS % 4.7 % (0.0-7.0); HEMATOCRIT 25.3 % (37.0-47.0); HEMOGLOBIN 8.6 g/dl (12.0-16.0); LYMPHOCYTES # 0.5 10^3/ul (0.8-2.9); LYMPHOCYTES % 22.3 % (15.0-51.0); MEAN CORPUSCULAR HEMOGLOBIN 32.7 pg (29.0-33.0); MEAN CORPUSCULAR VOLUME 96.2 fl (82.0-101.0); MEAN PLATELET VOLUME 12.9 fl (7.4-10.4); MONOCYTE # 0.2 10^3/ul (0.3-0.9); NEUTROPHIL # 1.3 10^3/ul (1.6-7.5); NEUTROPHILS % 62.1 % (39.0-77.0); RED BLOOD COUNT 2.63 10^6/ul (4.20-5.40)
[2019-01-29 13:24] LABS: WHITE BLOOD COUNT 2.1 10^3/ul (4.8-10.8)
[2019-01-29 13:32] LABS: POSITIVE DIFF @See below
[2019-01-29 13:34] LABS: PLATELET COUNT 23 10^3/UL (140-415)
[2019-01-30] MEDS: morphine 2 MG INJ IV ×5 (01:24→18:56)
[2019-01-30] MEDS: PANTOPRAZOLE 40 MG INJ IV ×2 (05:24→17:56)
[2019-01-30] MEDS: METOCLOPRAMIDE 10 MG INJ IV ×4 (05:24→20:30)
[2019-01-30] MEDS: POTASSIUM CHLORIDE 30 MEQ in SOD CHLORIDE 0.45% 1,000 ML IV ×2 (07:27→16:00)
[2019-01-30 08:42] LABS: ABNORMAL IP MESSAGE 1; HEMOGLOBIN 8.6 g/dl (12.0-16.0); MEAN CORPUSCULAR HEMOGLOBIN 31.6 pg (29.0-33.0); MEAN CORPUSCULAR HGB CONC 33.1 g/dl (32.0-37.0); MEAN CORPUSCULAR VOLUME 95.6 fl (82.0-101.0); MEAN PLATELET VOLUME 12.8 fl (7.4-10.4); RED BLOOD COUNT 2.72 10^6/ul (4.20-5.40)
[2019-01-30 08:42] LABS: WHITE BLOOD COUNT 2.3 10^3/ul (4.8-10.8)
[2019-01-30 09:00] LABS: ALANINE AMINOTRANSFERASE 40 IU/L (13-69); ALBUMIN 2.8 g/dl (3.3-4.9); ALBUMIN/GLOBULIN RATIO 0.77; ALKALINE PHOSPHATASE 201 IU/L (42-121); ANION GAP 8 (5-13); ASPARTATE AMINO TRANSFERASE 129 IU/L (15-46); BILIRUBIN,INDIRECT 0.8 mg/dl (0-1.1); BILIRUBIN,TOTAL 0.8 mg/dl (0.2-1.3); CALCIUM 8.7 mg/dl (8.4-10.2); CARBON DIOXIDE 25 mmol/L (21-31); CHLORIDE 101 mmol/L (97-110); CREATININE 0.38 mg/dl (0.44-1.00); Estimated GFR > 60 mL/min (>60); GLUCOSE 75 mg/dl (70-220); LIPASE 754 U/L (23-300); MAGNESIUM 1.5 mg/dl (1.7-2.5); POTASSIUM 4.5 mmol/L (3.5-5.1); SODIUM 134 mmol/L (135-144); TOTAL PROTEIN 6.4 g/dl (6.1-8.1)
[2019-01-30 09:08] LABS: BLOOD UREA NITROGEN < 2 mg/dl (7-20)
[2019-01-30 09:25] LABS: ADD MAN DIFF? YES; PLATELET COUNT 26 10^3/UL (140-415); POSITIVE DIFF @See below
[2019-01-30] MEDS: DIAZEPAM 2 MG TAB PO ×2 (09:39→20:30)
[2019-01-30 09:59] LABS: BAND NEUTROPHILS % (M) 1 % (0-4); EOSINOPHILS % (M) 7 % (0-7); GIANT THROMBO% (M) 5 % (0-0); LYMPHOCYTES #M 0.4 10^3/ul (0.8-2.9); LYMPHOCYTES % (M) 19 % (15-51); MONOCYTE #M 0.1 10^3/ul (0.3-0.9); MONOCYTES % (M) 5 % (0-11); PLATELET ESTIMATE SIG DECREASED; POLYCHROMASIA 1+ (0-0); SEG NEUT #M 1.6 10^3/ul (1.6-7.5); SEGMENTED NEUTROPHILS (M) % 68 % (39-77); SMUDGE%M 23 % (0-0)
[2019-01-30] MEDS: SPIRONOLACTONE 25 MG TAB PO (10:27)
[2019-01-30] MEDS: PHYTONADIONE 10 MG in DEXTROSE 5% 50 ML IVPB (10:27)
[2019-01-30] MEDS: traMADol 50 MG TAB PO ×2 (10:37→16:52)
[2019-01-30] MEDS: MAGNESIUM SULFATE 3 GM in DEXTROSE 5% 100 ML IVPB (11:26)
[2019-01-30] MEDS: ACETAMINOPHEN 325 MG TAB PO (14:36)
[2019-01-30] MEDS: DIPHENHYDRAMINE 50 MG INJ IV (14:37)
[2019-01-30 17:18] LABS: TYPE AND SCREEN 1 1
[2019-01-31] MEDS: morphine 2 MG INJ IV ×4 (00:01→18:23)
[2019-01-31] MEDS: POTASSIUM CHLORIDE 30 MEQ in SOD CHLORIDE 0.45% 1,000 ML IV ×4 (02:01→22:30)
[2019-01-31] MEDS: traMADol 50 MG TAB PO ×4 (02:01→22:30)
[2019-01-31] MEDS: PANTOPRAZOLE 40 MG INJ IV ×2 (05:15→18:23)
[2019-01-31 08:24] LABS: ABNORMAL IP MESSAGE 1; HEMATOCRIT 25.9 % (37.0-47.0); HEMOGLOBIN 8.3 g/dl (12.0-16.0); MEAN CORPUSCULAR HEMOGLOBIN 31.1 pg (29.0-33.0); MEAN PLATELET VOLUME 11.3 fl (7.4-10.4); RED BLOOD COUNT 2.67 10^6/ul (4.20-5.40); RED CELL DISTRIBUTION WIDTH 14.5 % (11.5-14.5)
[2019-01-31 08:24] LABS: WHITE BLOOD COUNT 2.4 10^3/ul (4.8-10.8)
[2019-01-31 08:31] LABS: ALANINE AMINOTRANSFERASE 41 IU/L (13-69); ALBUMIN 2.9 g/dl (3.3-4.9); ALBUMIN/GLOBULIN RATIO 0.87; ALKALINE PHOSPHATASE 173 IU/L (42-121); ANION GAP 6 (5-13); ASPARTATE AMINO TRANSFERASE 97 IU/L (15-46); BILIRUBIN,INDIRECT 0.7 mg/dl (0-1.1); BILIRUBIN,TOTAL 0.7 mg/dl (0.2-1.3); CALCIUM 8.7 mg/dl (8.4-10.2); CARBON DIOXIDE 29 mmol/L (21-31); CHLORIDE 102 mmol/L (97-110); CREATININE 0.42 mg/dl (0.44-1.00); Estimated GFR > 60 mL/min (>60); GLUCOSE 71 mg/dl (70-220); LIPASE 609 U/L (23-300); MAGNESIUM 1.6 mg/dl (1.7-2.5); POTASSIUM 4.7 mmol/L (3.5-5.1); SODIUM 137 mmol/L (135-144); TOTAL PROTEIN 6.2 g/dl (6.1-8.1)
[2019-01-31 08:32] LABS: ADD MAN DIFF? YES; PLATELET COUNT 48 10^3/UL (140-415); POSITIVE DIFF @See below
[2019-01-31 08:41] LABS: BLOOD UREA NITROGEN < 2 mg/dl (7-20)
[2019-01-31 08:43] LABS: INR 1.22; PROTIME 15.5 Sec (11.9-14.9); PT RATIO 1.2
[2019-01-31 08:44] LABS: PARTIAL THROMBOPLASTIN TIME 38.1 Sec (23.0-35.0)
[2019-01-31] MEDS: SPIRONOLACTONE 25 MG TAB PO (08:55)
[2019-01-31] MEDS: METOCLOPRAMIDE 10 MG INJ IV ×4 (08:55→20:33)
[2019-01-31] MEDS: DIAZEPAM 2 MG TAB PO ×2 (08:56→20:33)
[2019-01-31 10:31] LABS: ANISOCYTOSIS 1+ (0-0); BAND NEUTROPHILS % (M) 1 % (0-4); EOSINOPHILS % (M) 4 % (0-7); ERYTHROBLAST% (NRBC) (M) 1 % (0-0); GIANT THROMBO% (M) 7 % (0-0); HYPOCHROMASIA 2+ (0-0); LYMPHOCYTES #M 0.5 10^3/ul (0.8-2.9); LYMPHOCYTES % (M) 23 % (15-51); METAMYELOCYTES %M 3 % (0-0); MONOCYTES % (M) 4 % (0-11); PLATELET ESTIMATE SIG DECREASED; POLYCHROMASIA 3+ (0-0); SEG NEUT #M 1.6 10^3/ul (1.6-7.5); SEGMENTED NEUTROPHILS (M) % 65 % (39-77); SMUDGE%M 8 % (0-0)
[2019-02-01] MEDS: morphine 2 MG INJ IV ×5 (01:29→23:03)
[2019-02-01] MEDS: traMADol 50 MG TAB PO ×3 (04:34→17:50)
[2019-02-01] MEDS: PANTOPRAZOLE 40 MG INJ IV ×2 (05:01→17:50)
[2019-02-01] MEDS: POTASSIUM CHLORIDE 30 MEQ in SOD CHLORIDE 0.45% 1,000 ML IV ×2 (06:42→15:12)
[2019-02-01 08:36] LABS: WHITE BLOOD COUNT 2.2 10^3/ul (4.8-10.8)
[2019-02-01 08:36] LABS: ABNORMAL IP MESSAGE 1; HEMATOCRIT 27.2 % (37.0-47.0); HEMOGLOBIN 8.9 g/dl (12.0-16.0); MEAN CORPUSCULAR HGB CONC 32.7 g/dl (32.0-37.0); MEAN CORPUSCULAR VOLUME 97.8 fl (82.0-101.0); MEAN PLATELET VOLUME 11.3 fl (7.4-10.4); PLATELET COUNT 55 10^3/UL (140-415); RED BLOOD COUNT 2.78 10^6/ul (4.20-5.40); RED CELL DISTRIBUTION WIDTH 14.6 % (11.5-14.5)
[2019-02-01 08:50] LABS: INR 1.26; PROTIME 15.9 Sec (11.9-14.9); PT RATIO 1.2
[2019-02-01 08:51] LABS: PARTIAL THROMBOPLASTIN TIME 40.5 Sec (23.0-35.0)
[2019-02-01 08:56] LABS: ALANINE AMINOTRANSFERASE 36 IU/L (13-69); ALBUMIN 3.1 g/dl (3.3-4.9); ALBUMIN/GLOBULIN RATIO 0.88; ALKALINE PHOSPHATASE 171 IU/L (42-121); ANION GAP 6 (5-13); ASPARTATE AMINO TRANSFERASE 91 IU/L (15-46); BILIRUBIN,INDIRECT 0.8 mg/dl (0-1.1); BILIRUBIN,TOTAL 0.8 mg/dl (0.2-1.3); CALCIUM 9.1 mg/dl (8.4-10.2); CARBON DIOXIDE 29 mmol/L (21-31); CHLORIDE 101 mmol/L (97-110); CREATININE 0.43 mg/dl (0.44-1.00); Estimated GFR > 60 mL/min (>60); GLUCOSE 80 mg/dl (70-220); LIPASE 634 U/L (23-300); MAGNESIUM 1.3 mg/dl (1.7-2.5); POTASSIUM 4.4 mmol/L (3.5-5.1); SODIUM 136 mmol/L (135-144); TOTAL PROTEIN 6.6 g/dl (6.1-8.1)
[2019-02-01 08:57] LABS: ADD MAN DIFF? YES; POSITIVE DIFF @See below
[2019-02-01] MEDS: SPIRONOLACTONE 25 MG TAB PO (09:06)
[2019-02-01] MEDS: DIAZEPAM 2 MG TAB PO ×2 (09:06→20:47)
[2019-02-01] MEDS: METOCLOPRAMIDE 10 MG INJ IV ×4 (09:06→20:47)
[2019-02-01 09:27] LABS: BLOOD UREA NITROGEN < 2 mg/dl (7-20)
[2019-02-01 10:56] LABS: ANISOCYTOSIS 1+ (0-0); BAND NEUTROPHILS % (M) 3 % (0-4); BASOPHILS % (M) 2 % (0-2); GIANT THROMBO% (M) 10 % (0-0); LYMPHOCYTES #M 0.8 10^3/ul (0.8-2.9); LYMPHOCYTES % (M) 38 % (15-51); MONOCYTE #M 0.1 10^3/ul (0.3-0.9); MONOCYTES % (M) 6 % (0-11); PLATELET ESTIMATE SIG DECREASED; POIKILOCYTOSIS 1+ (0-0); POLYCHROMASIA 1+ (0-0); SEG NEUT #M 1.1 10^3/ul (1.6-7.5); SEGMENTED NEUTROPHILS (M) % 51 % (39-77); SMUDGE%M 16 % (0-0); TARGET CELLS 1+ (0-0)
[2019-02-01] MEDS: MAGNESIUM SULFATE 4 GM/100 ML 100 ML IVPB (17:50)
[2019-02-01] MEDS: PHYTONADIONE 10 MG/ML INJ IM (23:03)
[2019-02-02] MEDS: traMADol 50 MG TAB PO ×4 (00:47→21:55)
[2019-02-02] MEDS: morphine 2 MG INJ IV ×4 (04:29→20:20)
[2019-02-02] MEDS: PANTOPRAZOLE 40 MG INJ IV ×2 (05:14→18:05)
[2019-02-02] MEDS: POTASSIUM CHLORIDE 30 MEQ in SOD CHLORIDE 0.45% 1,000 ML IV ×4 (05:55→21:55)
[2019-02-02 06:39] LABS: ADD MAN DIFF? NO
[2019-02-02 06:49] LABS: ABNORMAL IP MESSAGE 1; BASOPHILS % 1.5 % (0.0-2.0); EOSINOPHILS # 0.1 10^3/ul (0.0-0.5); EOSINOPHILS % 3.5 % (0.0-7.0); HEMATOCRIT 25.7 % (37.0-47.0); HEMOGLOBIN 8.6 g/dl (12.0-16.0); LYMPHOCYTES # 0.6 10^3/ul (0.8-2.9); LYMPHOCYTES % 32.3 % (15.0-51.0); MEAN CORPUSCULAR HEMOGLOBIN 32.6 pg (29.0-33.0); MEAN CORPUSCULAR HGB CONC 33.5 g/dl (32.0-37.0); MEAN CORPUSCULAR VOLUME 97.3 fl (82.0-101.0); MEAN PLATELET VOLUME 11.4 fl (7.4-10.4); MONOCYTE # 0.4 10^3/ul (0.3-0.9); MONOCYTES % 21.2 % (0.0-11.0); NEUTROPHIL # 0.8 10^3/ul (1.6-7.5); PLATELET COUNT 61 10^3/UL (140-415); RED BLOOD COUNT 2.64 10^6/ul (4.20-5.40); RED CELL DISTRIBUTION WIDTH 14.8 % (11.5-14.5)
[2019-02-02 06:58] LABS: POSITIVE DIFF @See below
[2019-02-02 07:01] LABS: IRON 24 ug/dl (35-150)
[2019-02-02 07:10] LABS: % IRON SATURATION 8 % SAT (22-52); TOTAL IRON BINDING CAPACITY 301 ug/dl (241-421)
[2019-02-02 07:17] LABS: INR 1.27; PT RATIO 1.3
[2019-02-02 07:19] LABS: AMYLASE 86 U/L (11-123)
[2019-02-02 07:19] LABS: LIPASE 497 U/L (23-300)
[2019-02-02 07:29] LABS: ALANINE AMINOTRANSFERASE 35 IU/L (13-69); ALBUMIN 2.8 g/dl (3.3-4.9); ALBUMIN/GLOBULIN RATIO 0.77; ALKALINE PHOSPHATASE 153 IU/L (42-121); ANION GAP 8 (5-13); ASPARTATE AMINO TRANSFERASE 78 IU/L (15-46); BILIRUBIN,INDIRECT 0.7 mg/dl (0-1.1); BILIRUBIN,TOTAL 0.7 mg/dl (0.2-1.3); CALCIUM 9.1 mg/dl (8.4-10.2); CARBON DIOXIDE 28 mmol/L (21-31); CHLORIDE 101 mmol/L (97-110); CREATININE 0.43 mg/dl (0.44-1.00); Estimated GFR > 60 mL/min (>60); GLUCOSE 107 mg/dl (70-220); POTASSIUM 4.4 mmol/L (3.5-5.1); SODIUM 137 mmol/L (135-144); TOTAL PROTEIN 6.4 g/dl (6.1-8.1)
[2019-02-02 07:33] LABS: BLOOD UREA NITROGEN < 2 mg/dl (7-20)
[2019-02-02 07:47] LABS: MAGNESIUM 1.9 mg/dl (1.7-2.5)
[2019-02-02 08:09] LABS: FOLATE 9.6 ng/ml (2.8-20.0)
[2019-02-02] MEDS: METOCLOPRAMIDE 10 MG INJ IV ×4 (08:41→20:20)
[2019-02-02] MEDS: SPIRONOLACTONE 25 MG TAB PO (08:42)
[2019-02-02] MEDS: DIAZEPAM 2 MG TAB PO ×2 (08:42→20:20)
[2019-02-03] MEDS: morphine 2 MG INJ IV ×5 (00:41→18:05)
[2019-02-03] MEDS: PANTOPRAZOLE 40 MG INJ IV ×2 (05:05→18:05)
[2019-02-03] MEDS: POTASSIUM CHLORIDE 30 MEQ in SOD CHLORIDE 0.45% 1,000 ML IV ×2 (06:07→18:15)
[2019-02-03] MEDS: traMADol 50 MG TAB PO ×3 (06:07→21:06)
[2019-02-03 08:14] LABS: ADD MAN DIFF? NO
[2019-02-03 08:18] LABS: WHITE BLOOD COUNT 2.3 10^3/ul (4.8-10.8)
[2019-02-03 08:18] LABS: ABNORMAL IP MESSAGE 1; BASOPHILS % 1.3 % (0.0-2.0); EOSINOPHILS # 0.1 10^3/ul (0.0-0.5); EOSINOPHILS % 3.9 % (0.0-7.0); HEMATOCRIT 27.4 % (37.0-47.0); HEMOGLOBIN 8.7 g/dl (12.0-16.0); LYMPHOCYTES # 0.7 10^3/ul (0.8-2.9); LYMPHOCYTES % 31.6 % (15.0-51.0); MEAN CORPUSCULAR HEMOGLOBIN 31.6 pg (29.0-33.0); MEAN CORPUSCULAR HGB CONC 31.8 g/dl (32.0-37.0); MEAN CORPUSCULAR VOLUME 99.6 fl (82.0-101.0); MEAN PLATELET VOLUME 11.6 fl (7.4-10.4); MONOCYTE # 0.5 10^3/ul (0.3-0.9); MONOCYTES % 19.9 % (0.0-11.0); NEUTROPHILS % 43.3 % (39.0-77.0); PLATELET COUNT 72 10^3/UL (140-415); RED BLOOD COUNT 2.75 10^6/ul (4.20-5.40); RED CELL DISTRIBUTION WIDTH 15.1 % (11.5-14.5)
[2019-02-03 08:31] LABS: POSITIVE DIFF @See below
[2019-02-03 08:44] LABS: ALANINE AMINOTRANSFERASE 28 IU/L (13-69); ALBUMIN 2.9 g/dl (3.3-4.9); ALBUMIN/GLOBULIN RATIO 0.82; ALKALINE PHOSPHATASE 146 IU/L (42-121); AMYLASE 83 U/L (11-123); ANION GAP 6 (5-13); ASPARTATE AMINO TRANSFERASE 79 IU/L (15-46); BILIRUBIN,INDIRECT 0.8 mg/dl (0-1.1); BILIRUBIN,TOTAL 0.8 mg/dl (0.2-1.3); CALCIUM 9.1 mg/dl (8.4-10.2); CARBON DIOXIDE 28 mmol/L (21-31); CHLORIDE 102 mmol/L (97-110); CREATININE 0.46 mg/dl (0.44-1.00); Estimated GFR > 60 mL/min (>60); GLUCOSE 106 mg/dl (70-220); LIPASE 432 U/L (23-300); MAGNESIUM 1.2 mg/dl (1.7-2.5); POTASSIUM 4.9 mmol/L (3.5-5.1); SODIUM 136 mmol/L (135-144); TOTAL PROTEIN 6.4 g/dl (6.1-8.1)
[2019-02-03] MEDS: FERROUS SULFATE (EC) 325 MG TAB PO ×3 (08:52→21:01)
[2019-02-03] MEDS: SPIRONOLACTONE 25 MG TAB PO (08:52)
[2019-02-03] MEDS: DIAZEPAM 2 MG TAB PO ×2 (08:52→21:01)
[2019-02-03] MEDS: METOCLOPRAMIDE 10 MG INJ IV ×4 (08:53→21:01)
[2019-02-03 09:02] LABS: BLOOD UREA NITROGEN < 2 mg/dl (7-20)
[2019-02-04] MEDS: POTASSIUM CHLORIDE 30 MEQ in SOD CHLORIDE 0.45% 1,000 ML IV ×3 (02:26→18:58)
[2019-02-04] MEDS: morphine 2 MG INJ IV ×5 (02:27→21:18)
[2019-02-04] MEDS: METOCLOPRAMIDE 10 MG INJ IV ×5 (05:21→21:10)
[2019-02-04] MEDS: PANTOPRAZOLE 40 MG INJ IV ×2 (05:21→19:07)
[2019-02-04] MEDS: traMADol 50 MG TAB PO ×3 (05:27→19:35)
[2019-02-04 06:11] LABS: INR 1.35; PROTIME 16.8 Sec (11.9-14.9); PT RATIO 1.3
[2019-02-04 06:12] LABS: PARTIAL THROMBOPLASTIN TIME 40.6 Sec (23.0-35.0)
[2019-02-04 06:28] LABS: ALANINE AMINOTRANSFERASE 33 IU/L (13-69); ALBUMIN 2.7 g/dl (3.3-4.9); ALBUMIN/GLOBULIN RATIO 0.72; ALKALINE PHOSPHATASE 149 IU/L (42-121); ANION GAP 8 (5-13); ASPARTATE AMINO TRANSFERASE 72 IU/L (15-46); BILIRUBIN,INDIRECT 0.7 mg/dl (0-1.1); BILIRUBIN,TOTAL 0.7 mg/dl (0.2-1.3); BLOOD UREA NITROGEN 2 mg/dl (7-20); CALCIUM 9.2 mg/dl (8.4-10.2); CARBON DIOXIDE 25 mmol/L (21-31); CHLORIDE 105 mmol/L (97-110); CREATININE 0.44 mg/dl (0.44-1.00); Estimated GFR > 60 mL/min (>60); GLUCOSE 71 mg/dl (70-220); LIPASE 478 U/L (23-300); MAGNESIUM 1.2 mg/dl (1.7-2.5); POTASSIUM 4.8 mmol/L (3.5-5.1); SODIUM 138 mmol/L (135-144); TOTAL PROTEIN 6.4 g/dl (6.1-8.1)
[2019-02-04] MEDS: SPIRONOLACTONE 25 MG TAB PO (09:02)
[2019-02-04] MEDS: DIAZEPAM 2 MG TAB PO ×2 (09:02→21:10)
[2019-02-04] MEDS: FERROUS SULFATE (EC) 325 MG TAB PO ×3 (09:02→21:10)
[2019-02-04] MEDS: PHYTONADIONE 10 MG in DEXTROSE 5% 50 ML IVPB (10:56)
[2019-02-04] MEDS: MAGNESIUM SULFATE 4 GM/100 ML 100 ML IVPB (10:59)
[2019-02-04] MEDS ORDERED: LIDOCAINE 1%/EPI (1:100,000) (MDV) 20 ML (14:04)
[2019-02-04] MEDS ORDERED: FENTAnyl 50 MCG/ML VIAL (14:35)
[2019-02-04 16:56] LABS: PLATELET COUNT 90 10^3/UL (140-415)
[2019-02-04 17:19] LABS: INR 1.28; PROTIME 16.1 Sec (11.9-14.9); PT RATIO 1.3
[2019-02-04 17:20] LABS: PARTIAL THROMBOPLASTIN TIME 40.5 Sec (23.0-35.0)
[2019-02-04 17:23] LABS: D-DIMER 1245.48 ng/ml (<460)
[2019-02-04 17:49] LABS: FIBRIN SPLIT PRODUCT <10 ug/ml (<10)
[2019-02-04 18:08] LABS: THROMBIN TIME 18.8 SEC (13.8-19.1)
[2019-02-04 18:13] LABS: FOLATE 8.5 ng/ml (2.8-20.0)
[2019-02-04] MEDS: DOCUSATE SODIUM 100 MG CAP PO (21:10)
[2019-02-05] MEDS: POTASSIUM CHLORIDE 30 MEQ in SOD CHLORIDE 0.45% 1,000 ML IV ×3 (03:00→19:22)
[2019-02-05] MEDS: morphine 2 MG INJ IV ×4 (03:02→18:49)
[2019-02-05 05:19] LABS: ADD MAN DIFF? NO
[2019-02-05 05:25] LABS: ABNORMAL IP MESSAGE 1; BASOPHILS % 1.9 % (0.0-2.0); EOSINOPHILS # 0.1 10^3/ul (0.0-0.5); EOSINOPHILS % 2.9 % (0.0-7.0); HEMATOCRIT 25.2 % (37.0-47.0); HEMOGLOBIN 8.4 g/dl (12.0-16.0); LYMPHOCYTES # 0.8 10^3/ul (0.8-2.9); LYMPHOCYTES % 37.7 % (15.0-51.0); MEAN CORPUSCULAR HEMOGLOBIN 31.5 pg (29.0-33.0); MEAN CORPUSCULAR HGB CONC 33.3 g/dl (32.0-37.0); MEAN CORPUSCULAR VOLUME 94.4 fl (82.0-101.0); MEAN PLATELET VOLUME 10.8 fl (7.4-10.4); MONOCYTE # 0.5 10^3/ul (0.3-0.9); MONOCYTES % 23.7 % (0.0-11.0); NEUTROPHIL # 0.7 10^3/ul (1.6-7.5); NEUTROPHILS % 33.8 % (39.0-77.0); PLATELET COUNT 79 10^3/UL (140-415); RED BLOOD COUNT 2.67 10^6/ul (4.20-5.40); RED CELL DISTRIBUTION WIDTH 14.5 % (11.5-14.5)
[2019-02-05 05:25] LABS: WHITE BLOOD COUNT 2.1 10^3/ul (4.8-10.8)
[2019-02-05 05:42] LABS: INR 1.38; PROTIME 17.1 Sec (11.9-14.9); PT RATIO 1.3
[2019-02-05 05:43] LABS: PARTIAL THROMBOPLASTIN TIME 41.1 Sec (23.0-35.0); POSITIVE DIFF @See below
[2019-02-05 06:09] LABS: ALANINE AMINOTRANSFERASE 29 IU/L (13-69); ALBUMIN 2.8 g/dl (3.3-4.9); ALBUMIN/GLOBULIN RATIO 0.82; ALKALINE PHOSPHATASE 146 IU/L (42-121); ANION GAP 7 (5-13); ASPARTATE AMINO TRANSFERASE 68 IU/L (15-46); BILIRUBIN,INDIRECT 0.6 mg/dl (0-1.1); BILIRUBIN,TOTAL 0.6 mg/dl (0.2-1.3); BLOOD UREA NITROGEN 2 mg/dl (7-20); CALCIUM 8.9 mg/dl (8.4-10.2); CARBON DIOXIDE 26 mmol/L (21-31); CHLORIDE 103 mmol/L (97-110); CREATININE 0.44 mg/dl (0.44-1.00); Estimated GFR > 60 mL/min (>60); GLUCOSE 70 mg/dl (70-220); LIPASE 413 U/L (23-300); MAGNESIUM 1.7 mg/dl (1.7-2.5); POTASSIUM 4.3 mmol/L (3.5-5.1); SODIUM 136 mmol/L (135-144); TOTAL PROTEIN 6.2 g/dl (6.1-8.1)
[2019-02-05] MEDS: PANTOPRAZOLE 40 MG INJ IV ×2 (06:31→17:37)
[2019-02-05] MEDS: traMADol 50 MG TAB PO ×3 (06:35→19:38)
[2019-02-05] MEDS: METOCLOPRAMIDE 10 MG INJ IV ×4 (06:35→22:12)
[2019-02-05] MEDS: DOCUSATE SODIUM 100 MG CAP PO ×2 (09:32→22:12)
[2019-02-05] MEDS: DIAZEPAM 2 MG TAB PO ×2 (09:33→22:12)
[2019-02-05] MEDS: SPIRONOLACTONE 25 MG TAB PO (09:33)
[2019-02-05] MEDS: FERROUS SULFATE (EC) 325 MG TAB PO ×3 (09:33→22:13)
[2019-02-05] MEDS: MAGNESIUM SULFATE 2 GM/50 ML 50 ML IVPB (09:52)
[2019-02-06] MEDS: morphine 2 MG INJ IV ×5 (00:19→19:51)
[2019-02-06] MEDS: POTASSIUM CHLORIDE 30 MEQ in SOD CHLORIDE 0.45% 1,000 ML IV ×5 (00:23→21:50)
[2019-02-06 05:53] LABS: ADD MAN DIFF? NO
[2019-02-06 05:59] LABS: WHITE BLOOD COUNT 2.3 10^3/ul (4.8-10.8)
[2019-02-06 05:59] LABS: ABNORMAL IP MESSAGE 1; BASOPHILS % 1.3 % (0.0-2.0); EOSINOPHILS # 0.1 10^3/ul (0.0-0.5); HEMATOCRIT 25.7 % (37.0-47.0); HEMOGLOBIN 8.5 g/dl (12.0-16.0); LYMPHOCYTES # 0.9 10^3/ul (0.8-2.9); LYMPHOCYTES % 38.8 % (15.0-51.0); MEAN CORPUSCULAR HGB CONC 33.1 g/dl (32.0-37.0); MEAN CORPUSCULAR VOLUME 96.6 fl (82.0-101.0); MEAN PLATELET VOLUME 11.1 fl (7.4-10.4); MONOCYTE # 0.5 10^3/ul (0.3-0.9); MONOCYTES % 20.7 % (0.0-11.0); NEUTROPHIL # 0.8 10^3/ul (1.6-7.5); NEUTROPHILS % 36.2 % (39.0-77.0); PLATELET COUNT 90 10^3/UL (140-415); RED BLOOD COUNT 2.66 10^6/ul (4.20-5.40); RED CELL DISTRIBUTION WIDTH 14.6 % (11.5-14.5)
[2019-02-06] MEDS: PANTOPRAZOLE 40 MG INJ IV ×2 (06:13→17:15)
[2019-02-06 06:17] LABS: INR 1.32; PROTIME 16.5 Sec (11.9-14.9); PT RATIO 1.3
[2019-02-06 06:18] LABS: PARTIAL THROMBOPLASTIN TIME 38.7 Sec (23.0-35.0)
[2019-02-06 06:33] LABS: ALANINE AMINOTRANSFERASE 31 IU/L (13-69); ALBUMIN 2.7 g/dl (3.3-4.9); ALBUMIN/GLOBULIN RATIO 0.79; ALKALINE PHOSPHATASE 133 IU/L (42-121); ANION GAP 6 (5-13); ASPARTATE AMINO TRANSFERASE 64 IU/L (15-46); BILIRUBIN,INDIRECT 0.5 mg/dl (0-1.1); BILIRUBIN,TOTAL 0.5 mg/dl (0.2-1.3); BLOOD UREA NITROGEN 3 mg/dl (7-20); CALCIUM 8.7 mg/dl (8.4-10.2); CARBON DIOXIDE 26 mmol/L (21-31); CHLORIDE 105 mmol/L (97-110); CREATININE 0.43 mg/dl (0.44-1.00); Estimated GFR > 60 mL/min (>60); GLUCOSE 67 mg/dl (70-220); LIPASE 430 U/L (23-300); MAGNESIUM 1.3 mg/dl (1.7-2.5); POTASSIUM 4.5 mmol/L (3.5-5.1); SODIUM 137 mmol/L (135-144); TOTAL PROTEIN 6.1 g/dl (6.1-8.1)
[2019-02-06 06:44] LABS: POSITIVE DIFF @See below
[2019-02-06] MEDS: METOCLOPRAMIDE 10 MG INJ IV ×4 (06:44→21:43)
[2019-02-06] MEDS: DOCUSATE SODIUM 100 MG CAP PO ×2 (08:22→21:43)
[2019-02-06] MEDS: traMADol 50 MG TAB PO ×2 (08:22→16:38)
[2019-02-06] MEDS: DIAZEPAM 2 MG TAB PO ×2 (08:22→21:43)
[2019-02-06] MEDS: FERROUS SULFATE (EC) 325 MG TAB PO ×3 (08:22→21:43)
[2019-02-06] MEDS: SPIRONOLACTONE 25 MG TAB PO (08:22)
[2019-02-06] MEDS: PHYTONADIONE 10 MG in DEXTROSE 5% 50 ML IVPB (11:06)
[2019-02-06] MEDS: MAGNESIUM SULFATE 4 GM/100 ML 100 ML IVPB (12:00)
[2019-02-07] MEDS: morphine 2 MG INJ IV ×3 (00:51→11:02)
[2019-02-07] MEDS: POTASSIUM CHLORIDE 30 MEQ in SOD CHLORIDE 0.45% 1,000 ML IV ×2 (03:54→06:16)
[2019-02-07 05:26] LABS: ADD MAN DIFF? NO
[2019-02-07 05:36] LABS: WHITE BLOOD COUNT 2.5 10^3/ul (4.8-10.8)
[2019-02-07 05:36] LABS: ABNORMAL IP MESSAGE 1; BASOPHIL # 0.1 10^3/ul (0.0-0.1); EOSINOPHILS # 0.1 10^3/ul (0.0-0.5); EOSINOPHILS % 2.4 % (0.0-7.0); HEMOGLOBIN 8.4 g/dl (12.0-16.0); LYMPHOCYTES % 40.1 % (15.0-51.0); MEAN CORPUSCULAR HEMOGLOBIN 31.7 pg (29.0-33.0); MEAN CORPUSCULAR HGB CONC 33.6 g/dl (32.0-37.0); MEAN CORPUSCULAR VOLUME 94.3 fl (82.0-101.0); MEAN PLATELET VOLUME 11.4 fl (7.4-10.4); MONOCYTE # 0.5 10^3/ul (0.3-0.9); MONOCYTES % 19.8 % (0.0-11.0); NEUTROPHIL # 0.9 10^3/ul (1.6-7.5); NEUTROPHILS % 35.7 % (39.0-77.0); PLATELET COUNT 93 10^3/UL (140-415); RED BLOOD COUNT 2.65 10^6/ul (4.20-5.40); RED CELL DISTRIBUTION WIDTH 14.5 % (11.5-14.5)
[2019-02-07 05:54] LABS: POSITIVE DIFF @See below
[2019-02-07 05:56] LABS: INR 1.31; PROTIME 16.4 Sec (11.9-14.9); PT RATIO 1.3
[2019-02-07 05:57] LABS: PARTIAL THROMBOPLASTIN TIME 38.6 Sec (23.0-35.0)
[2019-02-07 06:00] LABS: ALANINE AMINOTRANSFERASE 26 IU/L (13-69); ALBUMIN 2.6 g/dl (3.3-4.9); ALBUMIN/GLOBULIN RATIO 0.74; ALKALINE PHOSPHATASE 120 IU/L (42-121); ANION GAP 5 (5-13); ASPARTATE AMINO TRANSFERASE 61 IU/L (15-46); BILIRUBIN,INDIRECT 0.4 mg/dl (0-1.1); BILIRUBIN,TOTAL 0.4 mg/dl (0.2-1.3); BLOOD UREA NITROGEN 3 mg/dl (7-20); CALCIUM 8.7 mg/dl (8.4-10.2); CARBON DIOXIDE 27 mmol/L (21-31); CHLORIDE 105 mmol/L (97-110); CREATININE 0.48 mg/dl (0.44-1.00); Estimated GFR > 60 mL/min (>60); GLUCOSE 71 mg/dl (70-220); LIPASE 506 U/L (23-300); MAGNESIUM 1.5 mg/dl (1.7-2.5); SODIUM 137 mmol/L (135-144); TOTAL PROTEIN 6.1 g/dl (6.1-8.1)
[2019-02-07] MEDS: PANTOPRAZOLE 40 MG INJ IV (06:02)
[2019-02-07] MEDS: METOCLOPRAMIDE 10 MG INJ IV (06:36)
[2019-02-07] MEDS: FERROUS SULFATE (EC) 325 MG TAB PO (08:18)
[2019-02-07] MEDS: DOCUSATE SODIUM 100 MG CAP PO (08:18)
[2019-02-07] MEDS: SPIRONOLACTONE 25 MG TAB PO (08:18)
[2019-02-07] MEDS: DIAZEPAM 2 MG TAB PO (08:18)
[2019-02-07] MEDS: MAGNESIUM SULFATE 2 GM/50 ML 50 ML IVPB (08:21)
[2019-02-07] MEDS: traMADol 50 MG TAB PO (08:21)
== END 2019-02-07 11:25 | disposition home or self-care (01) | DRG 432 ==
LOC: TEL 21:27 → 2NE 02-03 11:57 → E/R 20:35 → TEL 01-30 15:05
PROVIDERS: Internal Medicine
PROC: 30233R1 Transfusion of Nonautologous Platelets into Peripheral Vein, Percutaneous Approach (ICD-10-PCS; 2019-01-30)
PROC: 07DR3ZX Extraction of Iliac Bone Marrow, Percutaneous Approach, Diagnostic (ICD-10-PCS; principal; 2019-02-04)
DX: K70.10 Alcoholic hepatitis without ascites (principal); K85.90 Acute pancreatitis without necrosis or infection, unspecified; E43 Unspecified severe protein-calorie malnutrition; D61.818 Other pancytopenia; Z68.1 Body mass index [BMI] 19.9 or less, adult; K70.9 Alcoholic liver disease, unspecified; Y90.8 Blood alcohol level of 240 mg/100 ml or more; R10.9 Unspecified abdominal pain; R16.2 Hepatomegaly with splenomegaly, not elsewhere classified; K76.0 Fatty (change of) liver, not elsewhere classified; R11.2 Nausea with vomiting, unspecified; K21.9 Gastro-esophageal reflux disease without esophagitis; F41.9 Anxiety disorder, unspecified; K29.70 Gastritis, unspecified, without bleeding; R00.0 Tachycardia, unspecified; I10 Essential (primary) hypertension; E87.6 Hypokalemia; F10.129 Alcohol abuse with intoxication, unspecified; E83.42 Hypomagnesemia; D50.9 Iron deficiency anemia, unspecified; N92.0 Excessive and frequent menstruation with regular cycle; R16.1 Splenomegaly, not elsewhere classified
CPT/HCPCS: 36415; 36430; 71045; 76700; 77012; 80053; 80307; 81003; 81025; 82140; 82150; 82607; 82746; 82962; 83540; 83615; 83690; 83735; 84443; 84484; 85025; 85049; 85362; 85378; 85384; 85610; 85670; 85730; 86644; 86850; 86900; 86901; 87081; 88305; 88313; 93005; 96374; 96375; 99217; 99285-25; G0378

== ENCOUNTER 2019-05-20 19:22 | Emergency (ER) | payer BC ==
[2019-05-20] MEDS: SOD CHLORIDE 0.9% 1,000 ML IV ×2 (19:59)
[2019-05-20] MEDS: ACETAMINOPHEN 500 MG TAB PO (19:59)
[2019-05-20 20:09] LABS: ABNORMAL IP MESSAGE 1; HEMATOCRIT 32.9 % (37.0-47.0); HEMOGLOBIN 11.4 g/dl (12.0-16.0); MEAN CORPUSCULAR HGB CONC 34.7 g/dl (32.0-37.0); MEAN CORPUSCULAR VOLUME 98.2 fl (82.0-101.0); MEAN PLATELET VOLUME 12.1 fl (7.4-10.4); PLATELET COUNT 31 10^3/UL (140-415); RED BLOOD COUNT 3.35 10^6/ul (4.20-5.40); RED CELL DISTRIBUTION WIDTH 14.7 % (11.5-14.5)
[2019-05-20 20:09] LABS: WHITE BLOOD COUNT 4.7 10^3/ul (4.8-10.8)
[2019-05-20 20:17] LABS: ADD MAN DIFF? YES; POSITIVE DIFF @See below
[2019-05-20 20:26] LABS: ANION GAP 16 (5-13); BLOOD UREA NITROGEN 3 mg/dl (7-20); CALCIUM 8.6 mg/dl (8.4-10.2); CARBON DIOXIDE 27 mmol/L (21-31); CHLORIDE 93 mmol/L (97-110); CREATININE 0.62 mg/dl (0.44-1.00); Estimated GFR > 60 mL/min (>60); GLUCOSE 96 mg/dl (70-220); POTASSIUM 3.3 mmol/L (3.5-5.1); SODIUM 136 mmol/L (135-144)
[2019-05-20 20:37] LABS: ANISOCYTOSIS 1+ (0-0); BAND NEUTROPHILS % (M) 1 % (0-4); GIANT THROMBO% (M) 4 % (0-0); LYMPHOCYTES #M 0.5 10^3/ul (0.8-2.9); LYMPHOCYTES % (M) 11 % (15-51); MONOCYTE #M 0.2 10^3/ul (0.3-0.9); MONOCYTES % (M) 6 % (0-11); PLATELET ESTIMATE SIG DECREASED; SEG NEUT #M 3.9 10^3/ul (1.6-7.5); SEGMENTED NEUTROPHILS (M) % 82 % (39-77); SMUDGE%M 7 % (0-0); TROPONIN-I < 0.012 ng/ml (0.000-0.120)
[2019-05-20] MEDS: DIAZEPAM 5 MG/ML SYG IV (21:32)
[2019-05-20] MEDS: DEXTROSE 5%-0.45% NACL 500 ML BAG IV (21:59)
[2019-05-20] MEDS: FOLIC ACID 1 MG TAB PO (21:59)
[2019-05-20] MEDS: THIAMINE 100 MG TAB PO (21:59)
[2019-05-20] MEDS: LIDOCAINE 1%/EPI (1:100,000) (MDV) 20 ML INJ (22:09)
== END 2019-05-20 23:10 | disposition home or self-care (01) ==
LOC: E/R 19:22
DX: E86.0 Dehydration (principal); S00.03XA Contusion of scalp, initial encounter; F10.230 Alcohol dependence with withdrawal, uncomplicated; D61.818 Other pancytopenia; I10 Essential (primary) hypertension; X58.XXXA Exposure to other specified factors, initial encounter; Y92.9 Unspecified place or not applicable
CPT/HCPCS: 36415; 70450; 80048; 84484; 85025; 93005; 96374; 96375; 99285-25